=== PATIENT | female | born 1970 | race Native Hawaiian/Other Pacific Islander ===

== ENCOUNTER 2016-07-29 13:20 | Emergency (ER) | payer MEDICAID ==
[2016-07-29] MEDS ORDERED: MORPHINE IM ONE (17:43)
[2016-07-29] MEDS ORDERED: ZOFRAN IM ONE (17:43)
[2016-07-29] MEDS ORDERED: DECADRON IM ONE (17:43)
--- NOTE | 2016-07-29 17:47 | Emergency Department Report ---
ED General Adult HPI - General Chief complaint: Pain General Stated complaint: PAIN AND BAD RASH Time Seen by Provider: 07/29/16 16:37 Source: patient Mode of arrival: Ambulatory Limitations: No Limitations - History of Present Illness Initial comments: 46 year old female with hx of lupus presents with joint pains and rash. states that rash is itchy and painful. denies taking medication for rash. denies other symptoms. - Related Data Home Medications Medication Instructions Recorded Confirmed Last Taken Advair Diskus 500-50 mcg 500 mcg INHALATION QDAY 02/05/16 02/05/16 Unknown Atenolol [Atenolol] 25 mg PO QDAY 02/05/16 02/05/16 02/05/16 0900 Baclofen [Baclofen] 10 mg PO TID 02/05/16 02/05/16 Unknown Baclofen [Baclofen] 50 mg PO TID 02/05/16 02/05/16 Unknown Combivent Inhaler 4 g INHALATION TID 02/05/16 02/05/16 Unknown Ipratropium 1.25 ml INHALATION TID 02/05/16 02/05/16 Unknown Levothyroxine 0.137 mg PO QDAY 02/05/16 02/05/16 02/05/16 0900 Levothyroxine Sodium 137 mcg PO QAM 02/05/16 02/05/16 02/05/16 [Levothyroxine] 0900 Neurontin 1,600 mg PO TID 02/05/16 02/05/16 02/05/16 0900 Plaquenil 400 mg PO QDAY 02/05/16 02/05/16 01/20/16 09:00 Previous Rx's Medication Instructions Recorded Last Taken Type Diazepam Tab [Valium] 5 mg PO TID PRN #14 tablet 02/05/16 Unknown Rx Tobramycin 0.3% [Tobrex] 1 drop OU Q6H #1 bottle 02/05/16 Unknown Rx HYDROcodone/APAP 10-325 [[place] 1 each PO Q8HR PRN #10 tablet 07/29/16 Unknown Rx 10/325] Nystatin/Triamcin [Mycolog Cream] 1 applicatio TP BID #1 tube 07/29/16 Unknown Rx Allergies Allergy/AdvReac Type Severity Reaction Status Date / Time codeine Allergy Unknown Verified 01/13/16 10:17 meperidine HCl [From Demerol] Allergy Anaphylaxis Verified 02/05/16 16:15 pregabalin [From Lyrica] Allergy Unknown Verified 01/13/16 10:17 quetiapine fumarate Allergy Unknown Verified 01/13/16 10:17 [From Seroquel] tramadol HCl [From Ultram] Allergy Unknown Verified 01/13/16 10:17 venlafaxine HCl Allergy Anaphylaxis Verified 02/05/16 16:15 [From Effexor] ED Review of Systems ROS: Stated complaint: PAIN AND BAD RASH Other details as noted in HPI Constitutional: denies: chills, fever Eyes: denies: eye pain, eye discharge, vision change ENT: denies: ear pain, throat pain Respiratory: denies: cough, shortness of breath, wheezing Cardiovascular: denies: chest pain, palpitations Endocrine: no symptoms reported Gastrointestinal: denies: abdominal pain, nausea, diarrhea Genitourinary: denies: urgency, dysuria, discharge Musculoskeletal: arthralgia. denies: back pain, joint swelling Skin: rash. denies: lesions Neurological: denies: headache, weakness, paresthesias Psychiatric: denies: anxiety, depression Hematological/Lymphatic: denies: easy bleeding, easy bruising ED Past Medical Hx - Past Medical History Hx Hypertension: Yes Hx Arthritis: Yes ("four types") Additional medical history: LUPUS, hyperthyroid, "nerve damage" - Surgical History Hx Appendectomy: Yes Additional Surgical History: hyperthyroid, hernia repair - Social History Smoking Status: Current Every Day Smoker Substance Use Type: None - Medications Home Medications: Home Medications Medication Instructions Recorded Confirmed Last Taken Type Advair Diskus 500-50 mcg 500 mcg INHALATION QDAY 02/05/16 02/05/16 Unknown History Atenolol [Atenolol] 25 mg PO QDAY 02/05/16 02/05/16 02/05/16 History 0900 Baclofen [Baclofen] 10 mg PO TID 02/05/16 02/05/16 Unknown History Baclofen [Baclofen] 50 mg PO TID 02/05/16 02/05/16 Unknown History Combivent Inhaler 4 g INHALATION TID 02/05/16 02/05/16 Unknown History Diazepam Tab [Valium] 5 mg PO TID PRN #14 tablet 02/05/16 Unknown Rx Ipratropium 1.25 ml INHALATION TID 02/05/16 02/05/16 Unknown History Levothyroxine 0.137 mg PO QDAY 02/05/16 02/05/16 02/05/16 History 899 Levothyroxine Sodium 137 mcg PO QAM 02/05/16 02/05/16 02/05/16 History [Levothyroxine] 899 Neurontin 1,600 mg PO TID 02/05/16 02/05/16 02/05/16 History 899 Plaquenil 400 mg PO QDAY 02/05/16 02/05/16 01/20/16 09:00 History Tobramycin 0.3% [Tobrex] 1 drop OU Q6H #1 bottle 02/05/16 Unknown Rx HYDROcodone/APAP 10-325 [[place] 1 each PO Q8HR PRN #10 tablet 07/29/16 Unknown Rx 10/325] Nystatin/Triamcin [Mycolog Cream] 1 applicatio TP BID #1 tube 07/29/16 Unknown Rx ED Physical Exam - General Limitations: No Limitations General appearance: alert, in no apparent distress - Head Head exam: Present: atraumatic, normocephalic - Eye Eye exam: Present: normal appearance - ENT ENT exam: Present: mucous membranes moist - Neck Neck exam: Present: normal inspection - Respiratory Respiratory exam: Present: normal lung sounds bilaterally. Absent: respiratory distress - Cardiovascular Cardiovascular Exam: Present: regular rate, normal rhythm. Absent: systolic murmur, diastolic murmur, rubs, gallop - GI/Abdominal GI/Abdominal exam: Present: soft, normal bowel sounds - Extremities Exam Extremities exam: Present: normal inspection - Back Exam Back exam: Present: normal inspection - Neurological Exam Neurological exam: Present: alert, oriented X3 - Psychiatric Psychiatric exam: Present: normal affect, normal mood - Skin Skin exam: Present: warm, dry, intact, normal color, other (intertigo around bilateral axillary areas and under the breast region.). Absent: rash ED Course Vital Signs 07/29/16 13:53 Temperature 98.4 F Pulse Rate 96 H Respiratory 18 Rate Blood Pressure 137/92 O2 Sat by Pulse 100 Oximetry ED Medical Decision Making - Medical Decision Making patient in NAD at this time. VSS for DC. Critical care attestation.: If time is entered above; I have spent that time in minutes in the direct care of this critically ill patient, excluding procedure time. ED Disposition Clinical Impression: Intertrigo, Joint pain Disposition: DISCHARGED TO HOME OR SELFCARE Is pt being admited?: No Does the pt Need Aspirin: No Condition: Good Instructions: Acute Rash (ED) Prescriptions: HYDROcodone/APAP 10-325 [[place] 10/325] 1 each PO Q8HR PRN #10 tablet PRN Reason: Pain Nystatin/Triamcin [Mycolog Cream] 1 applicatio TP BID #1 tube Referrals: PRIMARY CARE, [Primary Care Provider] - 3-5 Days [facility] [Provider Group] - 3-5 Days Forms: Work/School Release Form(ED) Time of Disposition: 17:51
[2016-07-29 18:00] VITALS: BP 149/83
== END 2016-07-29 20:32 | disposition home or self-care (01) ==
LOC: ED 13:20
DX: L30.4 Erythema intertrigo (principal); M25.50 Pain in unspecified joint; M32.9 Systemic lupus erythematosus, unspecified; I10 Essential (primary) hypertension; M19.90 Unspecified osteoarthritis, unspecified site; E05.90 Thyrotoxicosis, unspecified without thyrotoxic crisis or storm; F17.200 Nicotine dependence, unspecified, uncomplicated; Z98.890 Other specified postprocedural states; Z79.899 Other long term (current) drug therapy; Z88.6 Allergy status to analgesic agent; Z88.8 Allergy status to other drugs, medicaments and biological substances
CPT/HCPCS: 96372; 99282; J1100; J2270; J2405

== ENCOUNTER 2018-06-15 18:02 | Inpatient (IN) | payer MEDICAID ==
[2018-06-15 19:30] LABS: Basophils # (Auto) 0.1 K/mm3 (0.0-0.1); Basophils % (Auto) 0.8 % (0.0-1.8); Eosinophils % (Auto) 0.4 % (0.0-4.3); Hematocrit 37.7 % (30.3-42.9); Hemoglobin 12.7 gm/dl (10.1-14.3); Lymphocytes # (Auto) 3.1 K/mm3 (1.2-5.4); Lymphocytes % (Auto) 40.4 % (13.4-35.0); Mean Corpuscular HGB Conc 34 % (30-34); Mean Corpuscular Volume 98 fl (79-97); Monocytes % (Auto) 13.2 % (0.0-7.3); Platelet Count 345 K/mm3 (140-440); Red Blood Count 3.83 M/mm3 (3.65-5.03); Red Cell Distribution Width 16.2 % (13.2-15.2)
[2018-06-15 19:49] LABS: BUN/Creatinine Ratio 13; Blood Urea Nitrogen 9 mg/dL (7-17); Calcium 9.5 mg/dL (8.4-10.2); Hemolysis Index 13
[2018-06-15] MEDS ORDERED: TORADOL IV ONE (20:10)
[2018-06-15] MEDS ORDERED: ZOFRAN IV ONE (20:20)
[2018-06-15] MEDS ORDERED: ZANAFLEX PO ONE (20:20)
[2018-06-15] MEDS ORDERED: MORPHINE IV ONE (20:20)
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
--- NOTE | 2018-06-15 22:25 | Cat Scan Report ---
FINAL REPORT EXAM: CT ANGIO CHEST HISTORY: cp, hx of recent diag lung ca TECHNIQUE: Enhanced CT of the chest at 2.5 mm axial intervals following a pulmonary embolism protoco l. Coronal and sagittal imaging were also obtained. Coronal oblique MIP projections were obtained. Contrast: 100 ml of Omnipaque 350 given IV. PRIORS: None. FINDINGS: There is no evidence for pulmonary embolism in the main pulmonary artery, right and left pulmonary ar teries or their major distributions. However, CT does not exclude distal pulmonary emboli. There is a multilobulated soft tissue mass in the left suprahilar region measuring at least 4.8 x 6.0 cm (axial image 35, series 2). Findings are consistent with neoplasm. There is also left hilar adeno maliha. There are multiple nonspecific uncalcified nodules identified in the upper lobes, right middle lobe, and left lower lobe. No definite nodules in the right lower lobe are noted. These measure up t o 1.2 cm in the central right upper lobe (axial image 37, series 2) and a perivascular location. There is no evidence for right hilar or bilateral axillary adenopathy. Cardiovascular structures are within normal limits. No evidence for ventricular chamber enlargement is seen. Images through the lung bases include the upper abdomen which show rounded hypodensities in both lobe s of the liver. The largest is in the posterior right lobe measuring 5.5 cm. The entire liver is not visualized. Findings are bothersome for metastatic disease. There also nodules present in each adrena l gland which are nonspecific. Metastatic disease is not excluded as well as other benign etiologies. Bony structures demonstrate no focal abnormalities. IMPRESSION: 1. no evidence for pulmonary embolism. 2. Left suprahilar multilobulated soft tissue mass consistent with neoplasm. This is associated with left hilar adenopathy, bilateral pulmonary metastatic lesions, and hepatic Tc sees. Bilateral adrenal nodules may also be metastatic.
--- NOTE | 2018-06-15 22:28 | XRay Report ---
FINAL REPORT EXAM: XR CHEST ROUTINE 2V HISTORY: Chest Pain TECHNIQUE: PA and lateral views of the chest PRIORS: CT chest 06/15/2018. FINDINGS: Lines, tubes, and devices: N/A Lungs and pleura: Trachea is normal in position. Lungs are clear of infiltrate, pleural effusion, va scular congestion, or pneumothorax. Pulmonary nodule seen on CT are difficult to visualize on CXR. Cardiomediastinal silhouette: There is abnormal left hilar margin consistent with a left hilar mass. This is noted on CT. Other: Bony structures are intact. IMPRESSION: Left suprahilar mass.
[2018-06-15] MEDS ORDERED: NITROSTAT SL PRN (23:37)
[2018-06-15] MEDS ORDERED: TYLENOL PO PRN (23:37)
[2018-06-16] MEDS: NITRO-BID 2% TP SCH ×5 (01:12→18:40)
[2018-06-16 01:13] LABS: Creatine Kinase MB 2.8 ng/mL (0.0-4.0)
[2018-06-16] MEDS: MORPHINE IV PRN ×6 (01:13→22:13)
[2018-06-16] MEDS ORDERED: RESTORIL PO ONE ×2 (01:15→22:36)
[2018-06-16] MEDS: ZOFRAN IV PRN ×2 (01:27→16:01)
[2018-06-16] MEDS: SYNTHROID PO SCH ×2 (05:05)
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
[2018-06-16] MEDS ORDERED: IPRATROPIUM INHALATION SCH ×2 (08:00)
[2018-06-16] MEDS ORDERED: ALBUTEROL INHALATION SCH (08:00)
[2018-06-16 08:23] LABS: Creatine Kinase MB 4.2 ng/mL (0.0-4.0)
--- NOTE | 2018-06-16 08:23 | Event Note ---
Date: 06/16/18 [id number]
--- NOTE | 2018-06-16 09:31 | Consultation ---
Addendum entered and electronically signed by HARVINDER MONTES MD 06/16/18 12:08: Atypical chest pain Normal LVEF and stress test 08/2017 CT chest is showing retrohilar mass Stage IV liver and lung cancer Poor prognosis Patient was told that she only has 6 months to live Homelessness Chronic shortness of breath No further cardiac work-up is needed for atypical chest given recent normal cardiac work-up Pain control and palliative care should be considered Original Note: History of Present Illness Consult date: 06/16/18 Consult reason: chest pain History of present illness: This is a 47 year old homeless woman who gives a history of stage IV liver and lung cancer. She presented to this hospital with complaints of chest pain associated with shortness of breath, nausea and vomiting. Cycled cardiac enzymes were normal. Her ECG is benign. Cardiac consultation was requested for chest pain. Patient was initially planned to have a stress thallium test, ordered by the primary team, but we have canceled this. Patient is known to [facility] and has previously undergone cardiac evaluation. She had a normal persantine thallium stress test and a normal left ventricular ejection fraction on an echocardiogram August of 2017. Medications and Allergies Allergies Allergy/AdvReac Type Severity Reaction Status Date / Time codeine Allergy Unknown Verified 01/13/16 10:17 meperidine HCl [From Demerol] Allergy Anaphylaxis Verified 02/05/16 16:15 pregabalin [From Lyrica] Allergy Unknown Verified 01/13/16 10:17 quetiapine fumarate Allergy Unknown Verified 01/13/16 10:17 [From Seroquel] tramadol HCl [From Ultram] Allergy Unknown Verified 01/13/16 10:17 venlafaxine HCl Allergy Anaphylaxis Verified 02/05/16 16:15 [From Effexor] Home Medications Medication Instructions Recorded Confirmed Last Taken Type Advair Diskus 500-50 mcg 500 mcg INHALATION QDAY 02/05/16 02/05/16 Unknown History Atenolol 25 mg PO QDAY 02/05/16 02/05/16 02/05/16 History 0900 Baclofen 10 mg PO TID 02/05/16 02/05/16 Unknown History Baclofen 50 mg PO TID 02/05/16 02/05/16 Unknown History Combivent Inhaler 4 g INHALATION TID 02/05/16 02/05/16 Unknown History Ipratropium 1.25 ml INHALATION TID 02/05/16 02/05/16 Unknown History Levothyroxine 0.137 mg PO QDAY 02/05/16 02/05/16 02/05/16 History 899 Levothyroxine Sodium 137 mcg PO QAM 02/05/16 02/05/16 02/05/16 History [Levothyroxine] 899 Neurontin 1,600 mg PO TID 02/05/16 02/05/16 02/05/16 History 899 Plaquenil 400 mg PO QDAY 02/05/16 02/05/16 01/20/16 09:00 History Tobramycin 0.3% [Tobrex] 1 drop OU Q6H #1 bottle 02/05/16 Unknown Rx diazePAM TAB [Valium] 5 mg PO TID PRN #14 tablet 02/05/16 Unknown Rx HYDROcodone/APAP 10-325 [[place] 1 each PO Q8HR PRN #10 tablet 07/29/16 Unknown Rx 10/325] Nystatin/Triamcin (Nf) [Mycolog 1 applicatio TP BID #1 tube 07/29/16 Unknown Rx Cream] Active Meds: Active Medications Acetaminophen (Tylenol) 650 mg PO Q6H PRN PRN Reason: Pain, Mild (1-3) Albuterol/Ipratropium (Duoneb *Not For Prn Use*) 1 ampul IH TIDRT [facility] Arformoterol Tartrate (Brovana Nebu) 15 mcg IH Q12HRT [facility] Aspirin (Aspirin) 325 mg PO QDAY [facility] Atenolol (Tenormin) 25 mg PO QDAY [facility] Budesonide (Pulmicort) 1 mg IH Q12HRT [facility] Cyclobenzaprine HCl (Flexeril) 10 mg PO Q8H PRN PRN Reason: Muscle Spasm Diazepam (Valium) 5 mg PO TID PRN PRN Reason: Muscle Spasm Gabapentin (Neurontin) 1,600 mg PO TID [facility] Hydroxychloroquine Sulfate (Plaquenil) 400 mg PO QDAY [facility] Levothyroxine Sodium (Synthroid) 25 mcg PO DAILY@0600 [facility] Last Admin: 06/16/18 05:05 Dose: 25 mcg Documented by: Levothyroxine Sodium (Synthroid) 112 mcg PO QDAY@0600 [facility] Last Admin: 06/16/18 05:05 Dose: 112 mcg Documented by: Miscellaneous Medication (Nystatin/Triamcin (Nf)) 1 applicatio TP BID [facility] Morphine Sulfate (Morphine) 2 mg IV Q3H PRN PRN Reason: Pain, Moderate (4-6) Last Admin: 06/16/18 05:04 Dose: 2 mg Documented by: Nitroglycerin (Nitrostat) 0.4 mg SL .Q5MIN PRN PRN Reason: Chest Pain Nitroglycerin (Nitro-Bid 2%) 0.5 inch TP QIDNTG [facility]; Protocol Last Admin: 06/16/18 05:06 Dose: Not Given Documented by: Ondansetron HCl (Zofran) 4 mg IV Q8H PRN PRN Reason: Nausea And Vomiting Last Admin: 06/16/18 01:27 Dose: 4 mg Documented by: Pneumococcal Polyvalent Vaccine (Pneumovax 23) 0.5 ml IM .ONCE ONE Stop: 06/16/18 12:01 Tobramycin Sulfate (Tobrex) 1 drops OU Q6H [facility] Physical Examination Vital Signs Pulse Resp 113 H 12 06/15/18 18:10 06/15/18 18:10 General appearance: no acute distress HEENT: Positive: PERRL Neck: Positive: trachea midline Cardiac: Positive: Reg Rate and Rhythm Lungs: Positive: Decreased Breath Sounds Neuro: Positive: Grossly Intact Extremities: Absent: edema Results 06/15/18 19:14 06/15/18 19:14 Cardiac Enzymes 06/16/18 06/16/18 Range/Units 00:23 07:01 CK-MB (CK-2) 2.8 4.2 H (0.0-4.0) ng/mL CBC 06/15/18 Range/Units 19:14 WBC 7.6 (4.5-11.0) K/mm3 RBC 3.83 (3.65-5.03) M/mm3 Hgb 12.7 (10.1-14.3) gm/dl Hct 37.7 (30.3-42.9) % Plt Count 345 (140-440) K/mm3 Lymph # 3.1 (1.2-5.4) K/mm3 [place] # 1.0 H (0.0-0.8) K/mm3 Eos # 0.0 (0.0-0.4) K/mm3 Baso # 0.1 (0.0-0.1) K/mm3 Comprehensive Metabolic Panel 06/15/18 Range/Units 19:14 Sodium 139 (137-145) mmol/L Potassium 3.6 (3.6-5.0) mmol/L Chloride 97.2 L (98-107) mmol/L Carbon Dioxide 27 (22-30) mmol/L BUN 9 (7-17) mg/dL Creatinine 0.7 (0.7-1.2) mg/dL Glucose 85 (65-100) mg/dL Calcium 9.5 (8.4-10.2) mg/dL Assessment and Plan - Patient Problems (1) Chest pain Current Visit: Yes Status: Acute
[2018-06-16] MEDS: ASPIRIN PO SCH (09:52)
[2018-06-16] MEDS: VALIUM PO PRN ×2 (09:52→18:40)
[2018-06-16] MEDS: NEURONTIN PO SCH ×3 (09:52→22:13)
[2018-06-16] MEDS: PLAQUENIL PO SCH ×2 (09:53→10:11)
[2018-06-16] MEDS: TENORMIN PO SCH (09:53)
[2018-06-16] MEDS ORDERED: SYNTHROID PO SCH (10:00)
[2018-06-16] MEDS ORDERED: TRIAMCINOLONE TP SCH (10:00)
[2018-06-16] MEDS ORDERED: NYSTATIN TP SCH (10:00)
[2018-06-16] MEDS ORDERED: ADVAIR INHALATION SCH (10:00)
--- NOTE | 2018-06-16 10:48 | Event Note ---
Date: 06/16/18 Patient with lung cancer presents with chest pain. cardology and Oncology consulted. She is homeless and case management has been consulted to assist. Also received a call from a PCP, Dr. Momo Bains. He states that she had an appointment today 06/16/18 and she was scheduled to meet with health service worker to assist since she is homeless.
[2018-06-16] MEDS ORDERED: AFLURIA QUAD 2018-2019 SYRINGE IM ONE (12:00)
[2018-06-16] MEDS ORDERED: PNEUMOVAX 23 IM ONE (12:00)
[2018-06-16] MEDS: TOBREX OU SCH ×3 (12:00→20:15)
[2018-06-16] MEDS: DUONEB *Not for PRN Use IH SCH ×3 (12:37→20:26)
[2018-06-16] MEDS: PULMICORT IH SCH ×2 (12:38→20:26)
[2018-06-16] MEDS: BROVANA NEBU IH SCH ×2 (12:38→20:26)
[2018-06-16] MEDS: FLEXERIL PO PRN ×2 (13:32→22:13)
[2018-06-16] MEDS ORDERED: AMBIEN PO PRN (21:23)
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
[2018-06-17] MEDS: NITRO-BID 2% TP SCH ×4 (05:44→18:07)
[2018-06-17] MEDS: TOBREX OU SCH ×3 (05:44→12:21)
[2018-06-17] MEDS: SYNTHROID PO SCH ×2 (05:44)
[2018-06-17] MEDS: PULMICORT IH SCH ×2 (07:39→21:28)
[2018-06-17] MEDS: BROVANA NEBU IH SCH ×2 (07:40→21:28)
[2018-06-17] MEDS: DUONEB *Not for PRN Use IH SCH ×2 (07:46→13:35)
[2018-06-17] MEDS: MORPHINE IV PRN ×4 (08:07→22:51)
--- NOTE | 2018-06-17 08:13 | Hem/Onc Progress Note ---
Assessment and Plan 1. History of stage IV lung cancer with liver mets. 2. Status post one session of chemotherapy, two chemotherapy agents were used in April 2018. After that, she has not been able to go back. 3. Homeless. 4. Financial issues. 5. History of active smoking. 6. History of thyroid disorder. 7. History of systemic lupus erythematosus? 8. History of hypertension. 9. Slightly elevated MCV. 10. Elevated D-dimer. PLAN: I will follow the patient during inpatient stay. The patient being homeless makes it challenging. She can come to the clinic and we will look into investigating into the markers to decide if oral medications can be used and see if free supply of the same medications can be given. However, she needs to make an appointment in the clinic to go over this procedure. pt looking into hospice headache - will look into CT head - Patient Problems (1) Metastatic lung cancer (metastasis from lung to other site) Status: Acute Subjective Date of service: 06/17/18 Principal diagnosis: stage 4 lung ca Interval history: vomiting Objective - Constitutional Vitals: Last Vital Signs Temp 98.6 F 06/17/18 07:56 Pulse 92 H 06/17/18 07:56 Resp 20 06/17/18 08:07 BP 106/73 06/17/18 07:56 Pulse Ox 93 06/17/18 07:56 Pain Intensity (0-10): 1/10 (headache) General appearance: no acute distress Performance status: 2- selfcare, ambulatory - EENT Eyes: EOM intact ENT: clear oral mucosa Lymph node exam: negative cervical, negative supraclavicular - Neck Neck: normal ROM - Respiratory Respiratory effort: Positive: normal Respiratory: bilateral: CTA - Cardiovascular Heart Sounds: Present: S1 & S2 Extremities: No edema - Gastrointestinal General gastrointestinal: Present: soft, non-tender Rectal Exam: deferred - Genitourinary Female genitourinary: Present: deferred - Integumentary Integumentary: warm - Musculoskeletal Musculoskeletal: strength equal bilaterally - Neurologic Neurologic: moves all extremities - Labs Lab Results: Laboratory Results - last 24 hr 06/16/18 07:01 Total Creatine Kinase 524 H CK-MB (CK-2) 4.2 H CK-MB (CK-2) Rel Index 0.8 Troponin T < 0.010 Medications & Allergies - Medications Allergies/Adverse Reactions: Allergies codeine Allergy (Verified 01/13/16 10:17) Unknown meperidine HCl [From Demerol] Allergy (Verified 02/05/16 16:15) Anaphylaxis peanut Allergy (Verified 06/16/18 15:21) Shortness of Breath pregabalin [From Lyrica] Allergy (Verified 01/13/16 10:17) Unknown quetiapine fumarate [From Seroquel] Allergy (Verified 01/13/16 10:17) Unknown tramadol HCl [From Ultram] Allergy (Verified 01/13/16 10:17) Unknown venlafaxine HCl [From Effexor] Allergy (Verified 02/05/16 16:15) Anaphylaxis Barley Allergy (Uncoded 06/16/18 15:20) Shortness of Breath Bronte Allergy (Uncoded 06/16/18 15:20) Shortness of Breath Home Medications: Home Medications Medication Instructions Recorded Confirmed Last Taken Type Advair Diskus 500-50 mcg 500 mcg INHALATION QDAY 02/05/16 02/05/16 Unknown H istory Combivent Inhaler 4 g INHALATION TID 02/05/16 02/05/16 Unknown History Ipratropium 1.25 ml INHALATION TID 02/05/16 02/05/16 Unknown History Levothyroxine 0.137 mg PO QDAY 02/05/16 02/05/16 02/05/16 History 899 Neurontin 1,600 mg PO TID 02/05/16 02/05/16 02/05/16 History 899 Plaquenil 400 mg PO QDAY 02/05/16 02/05/16 01/20/16 09:00 History RX: Atenolol 25 mg PO QDAY 02/05/16 02/05/16 02/05/16 History 899 RX: Baclofen 10 mg PO TID 02/05/16 02/05/16 Unknown History RX: Levothyroxine Sodium 137 mcg PO QAM 02/05/16 02/05/16 02/05/16 History [Levothyroxine] 899 RX: Tobramycin 0.3% [Tobrex] 1 drop OU Q6H #1 bottle 02/05/16 Unknown Rx RX: diazePAM TAB [Valium] 5 mg PO TID PRN #14 tablet 02/05/16 Unknown Rx RX: HYDROcodone/APAP 10-325 [[place] 1 each PO Q8HR PRN #10 tablet 07/29/16 Unknown Rx 10-325 mg TAB] RX: Nystatin/Triamcin (Nf) 1 applicatio TP BID #1 tube 07/29/16 Unknown Rx [Mycolog Cream] Active Medications: Generic Name Dose Route Start Last Admin Trade Name Freq PRN Reason Stop Dose Admin Acetaminophen 650 mg 06/15/18 23:37 Tylenol PO Q6H PRN Pain, Mild (1-3) Albuterol/Ipratropium 1 ampul 06/16/18 08:00 06/17/18 07:46 Duoneb *Not For Prn Use* IH Not Given TIDRT [facility] Arformoterol Tartrate 15 mcg 06/16/18 08:00 06/17/18 07:40 Brovana Nebu IH 15 mcg Q12HRT KARI Administration Aspirin 325 mg 06/16/18 10:00 06/16/18 09:52 Aspirin PO 325 mg QDAY [facility]ARI Administration Atenolol 25 mg 06/16/18 10:00 06/16/18 09:53 Tenormin PO 25 mg QDAY [facility] Administration Budesonide 1 mg 06/16/18 08:00 06/17/18 07:39 Pulmicort IH 1 mg Q12HRT KARI Administration Cyclobenzaprine HCl 10 mg 06/15/18 23:38 06/16/18 22:13 Flexeril PO 10 mg Q8H PRN Administration Muscle Spasm Diazepam 5 mg 06/15/18 23:41 06/16/18 18:40 Valium PO 5 mg TID PRN Administration Muscle Spasm Gabapentin 1,600 mg 06/16/18 08:00 06/16/18 22:13 Neurontin PO 1,600 mg TID KARI Administration Hydroxychloroquine Sulfate 400 mg 06/16/18 10:00 06/16/18 10:11 Plaquenil PO Not Given QDAY [facility] Levothyroxine Sodium 25 mcg 06/16/18 06:00 06/17/18 05:44 Synthroid PO 25 mcg DAILY@0600 [facility] Administration Levothyroxine Sodium 112 mcg 06/16/18 06:00 06/17/18 05:44 Synthroid PO 112 mcg QDAY@0600 [facility] Administration Miscellaneous Medication 1 applicatio 06/16/18 10:00 Nystatin/Triamcin (Nf) TP BID [facility] Morphine Sulfate 2 mg 06/15/18 23:35 06/17/18 08:07 Morphine IV 2 mg Q3H PRN Administration Pain, Moderate (4-6) Nitroglycerin 0.4 mg 06/15/18 23:37 Nitrostat SL .Q5MIN PRN Chest Pain Nitroglycerin 0.5 inch 06/16/18 00:00 06/17/18 05:44 Nitro-Bid 2% TP Not Given QIDNTG [facility] Protocol Ondansetron HCl 4 mg 06/15/18 23:36 06/16/18 16:01 Zofran IV 4 mg Q8H PRN Administration Nausea And Vomiting Tobramycin Sulfate 1 drops 06/16/18 06:00 06/17/18 06:29 Tobrex OU Not Given Q6H [facility]
[2018-06-17] MEDS: NEURONTIN PO SCH ×3 (08:15→22:50)
--- NOTE | 2018-06-17 09:41 | Progress Note ---
Assessment and Plan Assessment and plan: Metastatic lung cancer with mets to liver Patient has missed chemo because of homeless, l;ack of transportation. I discussed with her PCP, Dr. Momo Bains chest pain Due to lung cancer Metastatic liver lesions Lupus hypertension. continue Atenolol Homelessness. case management consulted, Full code status History Interval history: Chest pain Homeless Hospitalist Physical - Physical exam Narrative exam: GEN: Not in acute distress,lying in bed HEENT: Normocephalic, atraumatic, Neck: supple, No JVD Lungs: Clear to auscultation, no wheeze Heart:S1 and S2 regular, no murmurs, rubs or gallop, Abd:soft, non tender, non distended, normal bowel sounds Ext: No edema, no clubbing or cyanosis Neuro: Awake,alert, oriented x 3, No focal signs - Constitutional Vitals: Temp Pulse Resp BP Pulse Ox 98.6 F 92 H 20 106/73 93 06/17/18 07:56 06/17/18 07:56 06/17/18 08:07 06/17/18 07:56 06/17/18 07:56 General appearance: Present: no acute distress Results - Labs CBC & Chem 7: 06/15/18 19:14 06/15/18 19:14 Labs: Laboratory Last Values WBC 7.6 K/mm3 (4.5-11.0) 06/15/18 19:14 RBC 3.83 M/mm3 (3.65-5.03) 06/15/18 19:14 Hgb 12.7 gm/dl (10.1-14.3) 06/15/18 19:14 Hct 37.7 % (30.3-42.9) 06/15/18 19:14 MCV 98 fl (79-97) H 06/15/18 19:14 MCH 33 pg (28-32) H 06/15/18 19:14 MCHC 34 % (30-34) 06/15/18 19:14 RDW 16.2 % (13.2-15.2) H 06/15/18 19:14 Plt Count 345 K/mm3 (140-440) 06/15/18 19:14 Lymph % (Auto) 40.4 % (13.4-35.0) H 06/15/18 19:14 [place] % (Auto) 13.2 % (0.0-7.3) H 06/15/18 19:14 Eos % (Auto) 0.4 % (0.0-4.3) 06/15/18 19:14 Baso % (Auto) 0.8 % (0.0-1.8) 06/15/18 19:14 Lymph # 3.1 K/mm3 (1.2-5.4) 06/15/18 19:14 [place] # 1.0 K/mm3 (0.0-0.8) H 06/15/18 19:14 Eos # 0.0 K/mm3 (0.0-0.4) 06/15/18 19:14 Baso # 0.1 K/mm3 (0.0-0.1) 06/15/18 19:14 Seg Neutrophils % 45.2 % (40.0-70.0) 06/15/18 19:14 Seg Neutrophils # 3.4 K/mm3 (1.8-7.7) 06/15/18 19:14 D-Dimer 375.67 ng/mlDDU (0-234) H 06/15/18 19:14 Sodium 139 mmol/L (137-145) 06/15/18 19:14 Potassium 3.6 mmol/L (3.6-5.0) 06/15/18 19:14 Chloride 97.2 mmol/L (98-107) L 06/15/18 19:14 Carbon Dioxide 27 mmol/L (22-30) 06/15/18 19:14 Anion Gap 18 mmol/L 06/15/18 19:14 BUN 9 mg/dL (7-17) 06/15/18 19:14 Creatinine 0.7 mg/dL (0.7-1.2) 06/15/18 19:14 Estimated GFR > 60 ml/min 06/15/18 19:14 BUN/Creatinine Ratio 13 % 06/15/18 19:14 Glucose 85 mg/dL (65-100) 06/15/18 19:14 Calcium 9.5 mg/dL (8.4-10.2) 06/15/18 19:14 Total Creatine Kinase 524 units/L (30-135) H 06/16/18 07:01 CK-MB (CK-2) 4.2 ng/mL (0.0-4.0) H 06/16/18 07:01 CK-MB (CK-2) Rel Index 0.8 (0-4) 06/16/18 07:01 Troponin T < 0.010 ng/mL (0.00-0.029) 06/16/18 07:01 HCG, Qual Negative (Negative) 06/15/18 19:14 Nutrition/Malnutrition Assess - Dietary Evaluation Nutrition/Malnutrition Findings: Nutrition Notes Start: 06/16/18 14:49 Freq: Status: Active Protocol: Document 06/16/18 14:49 RM (Rec: 06/16/18 15:01 RM [id number]) Nutrition Notes Need for Assessment generated from: [facility] Initial or Follow up Assessment Current Diagnosis Hypertension Other Pertinent Diagnosis Hyperthyroidism, Lung cancer Current Diet Cardiac Labs/Tests Reviewed Pertinent Medications Reviewed Height 5 ft 9 in Weight 77.4 kg Usual Body Weight 75.91 kg [place] Body Weight (lbs) 145.0 BMI 25.2 Subjective/Other Information Pt screened for malnutrition. NPO in place earlier today. Cardiac diet ordered later today. Admitted to vomiting for 12 days and diarrhea for 2 weeks. Stated she can keep down fluids. Stated UBW was 165-170 lbs 1 month ago. Burn Absent Trauma Absent #1 Nutrition Diagnosis Predicted suboptimal energy intake Etiology lung cancer As Evidenced by Signs and Symptoms vomiting X 12 days Is patient on ventilator? No Is Patient Ambulatory and/or Out of Bed Yes REE-([facility]-ambulatory/OOB) [ [id number] [id number]] Calculation Used for Recommendations [facility] Additional Notes Protein Needs: 77-116g (1-1.5g /kg) Fluid Needs: 1 ml/kcal Nutrition Intervention Change Diet Order: Continue current Add Supplement/Snack (indicate name/kcal Ensure Enlive chocolate, /protein ) vanilla 1 daily Provides kCal: 350 Provides Protein (gm) 20 Goal #1 PO tolerance Goal #2 Meet at least 75% of calorie and protein needs via PO and ONS intakes Anticipated Discharge Needs: Cardiac diet Follow-Up By: 06/18/18 Additional Comments Follow for PO and ONS intakes
--- NOTE | 2018-06-17 10:45 | Progress Note ---
Addendum entered and electronically signed by HARRY SAVAGE MD 06/17/18 16:53: No active cardiac issues, we will sign off and follow on a when necessary basis. Original Note: Assessment and Plan Atypical chest pain Normal LVEF and stress test 08/2017 Stage IV liver and lung cancer Homelessness Chronic shortness of breath No further cardiac workup indicated. Supportive cardiac management. We will follow intermittently. Subjective Date of service: 06/17/18 Interval history: Patient has no cardiac complaints. Objective Vital Signs Temp Pulse Pulse Pulse Resp Resp Resp 06/17/18 08:07 20 06/17/18 07:56 98.6 F 92 H 18 06/17/18 07:44 06/17/18 07:41 84 18 06/17/18 05:44 77 06/17/18 04:14 98.1 F 77 16 06/16/18 23:46 98.1 F 76 16 06/16/18 22:43 18 06/16/18 22:30 18 06/16/18 22:13 18 06/16/18 22:05 74 20 06/16/18 20:43 91 H 18 06/16/18 20:34 93 H 06/16/18 20:28 06/16/18 20:27 89 17 06/16/18 19:54 98.3 F 12 06/16/18 19:02 18 06/16/18 17:19 98.4 F 74 20 06/16/18 12:58 78 18 06/16/18 12:39 06/16/18 12:35 72 20 06/16/18 12:15 98.3 F 72 20 BP Pulse Ox 06/17/18 08:07 06/17/18 07:56 106/73 93 06/17/18 07:44 95 06/17/18 07:41 06/17/18 05:44 89/52 06/17/18 04:14 89/52 97 06/16/18 23:46 100/61 96 06/16/18 22:43 06/16/18 22:30 06/16/18 22:13 06/16/18 22:05 98 06/16/18 20:43 06/16/18 20:34 06/16/18 20:28 100 06/16/18 20:27 06/16/18 19:54 115/77 06/16/18 19:02 06/16/18 17:19 92/55 98 06/16/18 12:58 06/16/18 12:39 95 06/16/18 12:35 06/16/18 12:15 116/79 97 - Physical Examination General: No Apparent Distress HEENT: Positive: PERRL Neck: Positive: trachea midline Cardiac: Positive: Reg Rate and Rhythm Lungs: Positive: Decreased Breath Sounds Neuro: Positive: Grossly Intact Extremities: Absent: edema
[2018-06-17] MEDS: PLAQUENIL PO SCH (11:55)
[2018-06-17] MEDS: ASPIRIN PO SCH (11:56)
[2018-06-17] MEDS: TENORMIN PO SCH (12:19)
--- NOTE | 2018-06-17 14:12 | Query- Dyspnea ---
Silvana Mercedes____Rico Date:___06/17/2018 Fabián/CDS:___Faye Phone#:___[phone] Exercise your independent professional judgment when responding to query. Questions asked do not imply a particular answer is desired or expected. We greatly appreciate your clarification on this issue. Clinical Documentation States: 47-year-old female with a past medical history of arthritis, hypertension, lupus with chronic pain (treated with narcotics), and recent lung cancer diagnosis in April 2018 presents to the hospital with complaints of continued mid chest pain times several weeks. Clinical Findings Show: Oxygen flow Rate: 3L/min O2 Sat: 93 RR: 25 Please clarify if the patient had any of the following conditions based on the above clinical findings: [x ] Respiratory Failure [x ] Acute [ ] Acute on Chronic [ ] Chronic [ ] Respiratory failure due to trauma [ ] Acute Respiratory Distress Syndrome [ ] Other: [ ] Unable to determine [ ] Comment/Explanation: Present on Admission: [x ] Yes (Y) [ ] Clinically undeterminable (W) [ ] No (N) Please also document response in your Progress Notes and/or Discharge Summary and indicate if the condition was present on admission. [facility]MA[facility]
[2018-06-17] MEDS: REGLAN IV SCH ×2 (18:06→22:50)
--- NOTE | 2018-06-18 | Cat Scan Report ---
FINAL REPORT PROCEDURE: CT HEAD/BRAIN WO/W CON TECHNIQUE: Computerized tomography of the head was performed without contrast material. HISTORY: mets h/a lung cancer COMPARISON: No prior studies are available for comparison. FINDINGS: Skull and scalp: Normal. Paranasal sinuses: Normal. Ventricles and subarachnoid spaces: Normal. Cerebrum: No evidence of hemorrhage, acute infarction or mass . Cerebellum and brainstem: No evidence of hemorrhage, acute infarction or mass. Vasculature: Normal. Comments: None. IMPRESSION: Normal Examination
[2018-06-18] MEDS: TOBREX OU SCH ×4 (06:27→12:37)
[2018-06-18] MEDS: NITRO-BID 2% TP SCH ×3 (06:27→14:52)
[2018-06-18] MEDS: SYNTHROID PO SCH ×2 (06:34)
[2018-06-18] MEDS: FLEXERIL PO PRN (06:43)
[2018-06-18] MEDS: MORPHINE IV PRN ×3 (06:43→15:14)
[2018-06-18] MEDS: PULMICORT IH SCH (07:37)
[2018-06-18] MEDS: BROVANA NEBU IH SCH (07:38)
[2018-06-18] MEDS: DUONEB *Not for PRN Use IH SCH ×3 (07:38→14:16)
[2018-06-18] MEDS: REGLAN IV SCH ×2 (08:39→14:52)
[2018-06-18] MEDS: NEURONTIN PO SCH ×2 (08:39→14:52)
[2018-06-18] MEDS: PLAQUENIL PO SCH (10:49)
[2018-06-18] MEDS: ASPIRIN PO SCH (10:49)
[2018-06-18] MEDS: TENORMIN PO SCH (10:51)
--- NOTE | 2018-06-18 13:17 | Consultation ---
History of Present Illness - Reason for Consult Consult date: 06/18/18 Reason for consult: Mental Health Evaluation Requesting physician: BETTINA YATES - Chief Complaint Chief complaint: "i was upset, never suicidal" - History of Present Psychiatric Illness 47 y.o.47 y.o. white female who presented to the ER for chest pain. Psychiatry was consulted to see the patient because she gestured SI's. Today the patient is calm and cooperative during the assessment. She stated that she made a gestures about shooting her self because she felt like she wasn't given all her options reference hospice treatment. She stated that the conversation with the hospice rep didn't go well. She apologized for making the statement. She stated, "I want to live as long as I can." She denies ever trying to kill herself or thinking about suicide the past. She stated that she does worry about her future because she was recently dx with lung cancer. She stated that she will be okay because she's a "fighter." She denies SI/HI's and AVH's. She denies erratic sleep and a poor appetite. She denies recreational drug use and alcohol consumption (etoh). The patient would a referral to outpatient psy services for therapy. Medications and Allergies Allergies Allergy/AdvReac Type Severity Reaction Status Date / Time codeine Allergy Unknown Verified 01/13/16 10:17 meperidine HCl [From Demerol] Allergy Anaphylaxis Verified 02/05/16 16:15 peanut Allergy Shortness Verified 06/16/18 15:21 of Breath pregabalin [From Lyrica] Allergy Unknown Verified 01/13/16 10:17 quetiapine fumarate Allergy Unknown Verified 01/13/16 10:17 [From Seroquel] tramadol HCl [From Ultram] Allergy Unknown Verified 01/13/16 10:17 venlafaxine HCl Allergy Anaphylaxis Verified 02/05/16 16:15 [From Effexor] Barley Allergy Shortness Uncoded 06/16/18 15:20 of Breath [place] Allergy Shortness Uncoded 06/16/18 15:20 of Breath Home Medications Medication Instructions Recorded Confirmed Last Taken Type Advair Diskus 500-50 mcg 500 mcg INHALATION QDAY 02/05/16 02/05/16 Unknown History Atenolol 25 mg PO QDAY 02/05/16 02/05/16 02/05/16 History 899 Baclofen 10 mg PO TID 02/05/16 02/05/16 Unknown History Combivent Inhaler 4 g INHALATION TID 02/05/16 02/05/16 Unknown History Ipratropium 1.25 ml INHALATION TID 02/05/16 02/05/16 Unknown History Levothyroxine 0.137 mg PO QDAY 02/05/16 02/05/16 02/05/16 History 899 Levothyroxine Sodium 137 mcg PO QAM 02/05/16 02/05/16 02/05/16 History [Levothyroxine] 899 Neurontin 1,600 mg PO TID 02/05/16 02/05/16 02/05/16 History 899 Plaquenil 400 mg PO QDAY 02/05/16 02/05/16 01/20/16 09:00 History Tobramycin 0.3% [Tobrex] 1 drop OU Q6H #1 bottle 02/05/16 Unknown Rx diazePAM TAB [Valium] 5 mg PO TID PRN #14 tablet 02/05/16 Unknown Rx HYDROcodone/APAP 10-325 [[place] 1 each PO Q8HR PRN #10 tablet 07/29/16 Unknown Rx 10-325 mg TAB] Nystatin/Triamcin (Nf) [Mycolog 1 applicatio TP BID #1 tube 07/29/16 Unknown Rx Cream] Active Meds: Active Medications Acetaminophen (Tylenol) 650 mg PO Q6H PRN PRN Reason: Pain, Mild (1-3) Albuterol/Ipratropium (Duoneb *Not For Prn Use*) 1 ampul IH TIDRT [facility] Last Admin: 06/18/18 07:39 Dose: Not Given Documented by: Arformoterol Tartrate (Brovana Nebu) 15 mcg IH Q12HRT [facility] Last Admin: 06/18/18 07:38 Dose: 15 mcg Documented by: Aspirin (Aspirin) 325 mg PO QDAY [facility] Last Admin: 06/18/18 10:49 Dose: 325 mg Documented by: Atenolol (Tenormin) 25 mg PO QDAY [facility] Last Admin: 06/18/18 10:51 Dose: 25 mg Documented by: Budesonide (Pulmicort) 1 mg IH Q12HRT [facility] Last Admin: 06/18/18 07:37 Dose: 1 mg Documented by: Cyclobenzaprine HCl (Flexeril) 10 mg PO Q8H PRN PRN Reason: Muscle Spasm Last Admin: 06/18/18 06:43 Dose: 10 mg Documented by: Diazepam (Valium) 5 mg PO TID PRN PRN Reason: Muscle Spasm Last Admin: 06/16/18 18:40 Dose: 5 mg Documented by: Gabapentin (Neurontin) 1,600 mg PO TID [facility] Last Admin: 06/18/18 08:39 Dose: 1,600 mg Documented by: Hydroxychloroquine Sulfate (Plaquenil) 400 mg PO QDAY [facility] Last Admin: 06/18/18 10:49 Dose: 400 mg Documented by: Levothyroxine Sodium (Synthroid) 25 mcg PO DAILY@0600 [facility] Last Admin: 06/18/18 06:34 Dose: 25 mcg Documented by: Levothyroxine Sodium (Synthroid) 112 mcg PO QDAY@0600 [facility] Last Admin: 06/18/18 06:34 Dose: 112 mcg Documented by: Metoclopramide HCl (Reglan) 5 mg IV TID [facility] Last Admin: 06/18/18 08:39 Dose: 5 mg Documented by: Miscellaneous Medication (Nystatin/Triamcin (Nf)) 1 applicatio TP BID [facility] Morphine Sulfate (Morphine) 3 mg IV Q3H PRN PRN Reason: Pain, Moderate (4-6) Last Admin: 06/18/18 11:03 Dose: 3 mg Documented by: Nitroglycerin (Nitrostat) 0.4 mg SL .Q5MIN PRN PRN Reason: Chest Pain Nitroglycerin (Nitro-Bid 2%) 0.5 inch TP QIDNTG [facility]; Protocol Last Admin: 06/18/18 10:51 Dose: 0.5 inch Documented by: Ondansetron HCl (Zofran) 4 mg IV Q8H PRN PRN Reason: Nausea And Vomiting Last Admin: 06/16/18 16:01 Dose: 4 mg Documented by: Tobramycin Sulfate (Tobrex) 1 drops OU Q6H [facility] Last Admin: 06/18/18 12:37 Dose: 1 drops Documented by: Past psychiatric history - Past Medical History Past Medical History: other (Ling [place], Lupus) Past Surgical History: No surgical history - past Psychiatric treatment and history psychiatric treatment history: Denies a psy hx and fam psy hx. - Social History Social history: lives with family Mental Status Exam - Vital signs Last Vital Signs Temp 98.6 F 06/18/18 08:50 Pulse 68 06/18/18 10:51 Resp 20 06/18/18 11:03 BP 112/76 06/18/18 10:51 Pulse Ox 96 06/18/18 08:50 - Exam Narrative exam: MSE: Appearance: calm, cooperative Behavior: regular eye contact Speech: regular rate and tone Mood: "okay" Affect: congruent to mood Thought Process: logical Thought Content: denies SI/HI's and AVH's Motor Activity: sitting up in bed Cognition: A/O x 3 Insight: appropriate Judgment: appropriate Results Result Diagrams: 06/15/18 19:14 06/15/18 19:14 All other labs normal. Assessment and Plan Assessment and plan: Impression: Adjustment DO. Today the patient is calm and cooperative during the assessment. The patient is no threat to self. Recommendation/Plan: Rescind 1013. Dipso: The patient can follow up with [facility] outpatient psy services (Therapy). Staffed with Dr Casanova.
[2018-06-18 15:03] VITALS: BP 115/78
--- NOTE | 2018-06-18 15:07 | Discharge Summary ---
Providers - Providers Date of Admission: 06/15/18 22:46 Date of discharge: 06/18/18 Attending physician: BETTINA YATES 06/16/18 05:15 Consult to Physician [CONS] Routine Comment: Consulting Provider: MUNIRA KING Physician Instructions: Reason For Exam: LUNG CANCER WITH METASTASIS TO THE LUNGS 06/17/18 14:39 Consult to Mental Health [CONS] Routine Reason For Exam: Suicidal Place consult to:: Psych Notified:: Debbie BLANCO Phone number called:: Ext. [phone] Was contact made?: Yes If yes, spoke with:: [facility]-mental health Time called:: 15:20 Hospitalization Condition: Fair Hospital course: Patient is 48 yo with lung cancer with metastases to liver, hypertension, lupus. She was being treated at [facility] but has not been following up because she is homeless. She presented with chest pain. CTA was negative for pulmonary embolism but shows Lung cancer, bilateral lung metastases, liver lesions. This was discussed with her. She was evaluated by Cardiology and Oncology. Patient eventually decided on inpatient hospice. This was arranged by Case management and she was discharged to [facility]. Total time spent on discharge, 33 mins Disposition: [place] ([facility]) - Discharge Diagnoses (1) Chronic pain Status: Acute (2) Homeless Status: Acute (3) Lupus Status: Acute (4) Metastatic lung cancer (metastasis from lung to other site) Status: Acute Core Measure Documentation - Palliative Care Palliative Care/ Comfort Measures: Not Applicable - Core Measures Any of the following diagnoses?: none Exam - Constitutional Vitals: Temp Pulse Resp BP Pulse Ox 98.6 F 68 20 112/76 96 06/18/18 08:50 06/18/18 10:51 06/18/18 11:03 06/18/18 10:51 06/18/18 08:50 Plan Activity: advance as tolerated Diet: low fat, low cholesterol, low salt Additional Instructions: 1. Transfer to inpatient hospice to care of Medical Technologist. Follow up with: RADHA MCKENZIE [Other] - 7 Days
--- NOTE | 2018-06-18 18:54 | Hem/Onc Progress Note ---
Assessment and Plan 1. History of stage IV lung cancer with liver mets. 2. Status post one session of chemotherapy, two chemotherapy agents were used in April 2018. After that, she has not been able to go back. 3. Homeless. 4. Financial issues. 5. History of active smoking. 6. History of thyroid disorder. 7. History of systemic lupus erythematosus? 8. History of hypertension. 9. Slightly elevated MCV. 10. Elevated D-dimer. PLAN: I will follow the patient during inpatient stay. The patient being homeless makes it challenging. She can come to the clinic and we will look into investigating into the markers to decide if oral medications can be used and see if free supply of the same medications can be given. However, she needs to make an appointment in the clinic to go over this procedure. pt looking into hospice headache - will look into CT head 06/18 - CT head - neg was placed undeer suicide watch - Patient Problems (1) Metastatic lung cancer (metastasis from lung to other site) Status: Acute Subjective Date of service: 06/18/18 Principal diagnosis: lung ca Interval history: wants to go home Objective - Constitutional Vitals: Last Vital Signs Temp 98.6 F 06/18/18 08:50 Pulse 85 06/18/18 14:52 Resp 20 06/18/18 15:14 BP 115/78 06/18/18 14:52 Pulse Ox 96 06/18/18 08:50 Pain Intensity (0-10): 1/10 (headache) General appearance: no acute distress Performance status: 1-light work, ambulatory - EENT Eyes: EOM intact ENT: clear oral mucosa Lymph node exam: negative cervical, negative supraclavicular - Neck Neck: normal ROM - Respiratory Respiratory: bilateral: CTA - Cardiovascular Heart Sounds: Present: S1 & S2 Extremities: No edema - Gastrointestinal General gastrointestinal: Present: soft, non-tender Rectal Exam: deferred - Genitourinary Female genitourinary: Present: deferred - Integumentary Integumentary: warm - Musculoskeletal Musculoskeletal: strength equal bilaterally - Neurologic Neurologic: moves all extremities - Psychiatric Psychiatric: appropriate mood/affect Medications & Allergies - Medications Allergies/Adverse Reactions: Allergies codeine Allergy (Verified 01/13/16 10:17) Unknown meperidine HCl [From Demerol] Allergy (Verified 02/05/16 16:15) Anaphylaxis peanut Allergy (Verified 06/16/18 15:21) Shortness of Breath pregabalin [From Lyrica] Allergy (Verified 01/13/16 10:17) Unknown quetiapine fumarate [From Seroquel] Allergy (Verified 01/13/16 10:17) Unknown tramadol HCl [From Ultram] Allergy (Verified 01/13/16 10:17) Unknown venlafaxine HCl [From Effexor] Allergy (Verified 02/05/16 16:15) Anaphylaxis Barley Allergy (Uncoded 06/16/18 15:20) Shortness of Breath [place] Allergy (Uncoded 06/16/18 15:20) Shortness of Breath Home Medications: Home Medications Medication Instructions Recorded Confirmed Last Taken Type Advair Diskus 500-50 mcg 500 mcg INHALATION QDAY 02/05/16 02/05/16 Unknown History Atenolol 25 mg PO QDAY 02/05/16 02/05/16 02/05/16 History 899 Baclofen 10 mg PO TID 02/05/16 02/05/16 Unknown History Combivent Inhaler 4 g INHALATION TID 02/05/16 02/05/16 Unknown History Ipratropium 1.25 ml INHALATION TID 02/05/16 02/05/16 Unknown History Levothyroxine 0.137 mg PO QDAY 02/05/16 02/05/16 02/05/16 History 899 Levothyroxine Sodium 137 mcg PO QAM 02/05/16 02/05/16 02/05/16 History [Levothyroxine] 899 Neurontin 1,600 mg PO TID 02/05/16 02/05/16 02/05/16 History 09 Plaquenil 400 mg PO QDAY 02/05/16 02/05/16 01/20/16 09:00 History Tobramycin 0.3% [Tobrex] 1 drop OU Q6H #1 bottle 02/05/16 Unknown Rx diazePAM TAB [Valium] 5 mg PO TID PRN #14 tablet 02/05/16 Unknown Rx HYDROcodone/APAP 10-325 [[place] 1 each PO Q8HR PRN #10 tablet 07/29/16 Unknown Rx 10-325 mg TAB] Nystatin/Triamcin (Nf) [Mycolog 1 applicatio TP BID #1 tube 07/29/16 Unknown Rx Cream]
[2018-06-18] MEDS ORDERED: PULMICORT IH SCH (20:00)
== END 2018-06-18 18:20 | disposition hospice, inpatient (51) | DRG 180 ==
LOC: ED 18:02 → 4A 22:46
PROVIDERS: ADMIT Internal Medicine; ATTEND Internal Medicine
PROC: 3E0234Z Introduction of Serum, Toxoid and Vaccine into Muscle, Percutaneous Approach (ICD-10-PCS; principal; 2018-06-16)
DX: C34.90 Malignant neoplasm of unspecified part of unspecified bronchus or lung (principal); J96.00 Acute respiratory failure, unspecified whether with hypoxia or hypercapnia; C78.7 Secondary malignant neoplasm of liver and intrahepatic bile duct; M32.9 Systemic lupus erythematosus, unspecified; G89.29 Other chronic pain; R07.89 Other chest pain; I10 Essential (primary) hypertension; F43.20 Adjustment disorder, unspecified; M19.90 Unspecified osteoarthritis, unspecified site; F17.210 Nicotine dependence, cigarettes, uncomplicated; Z59.0 Homelessness; Z88.5 Allergy status to narcotic agent; Z91.010 Allergy to peanuts; Z23 Encounter for immunization
CPT/HCPCS: 36415; 70470; 71046; 71275; 80048; 82550; 82553; 84484; 84703; 85025; 85379; 87116; 90686; 90732; 93005; 93010; 94640; 94760; 99406; G0378; J1885; J2270; J2405; J2765; Q9967

== ENCOUNTER 2018-06-27 18:42 | Emergency (ER) | payer MEDICAID ==
[2018-06-27 19:33] VITALS: BP 126/90
[2018-06-27] MEDS ORDERED: DILAUDID IV ONE (19:48)
[2018-06-27] MEDS ORDERED: ZOFRAN IV ONE (19:48)
--- NOTE | 2018-06-27 20:06 | Emergency Department Report ---
ED Abdominal Pain HPI - General Chief Complaint: Chest Pain Stated Complaint: ABDOMINAL PAIN/CHILLS Source: patient, EMS Mode of arrival: Stretcher Limitations: Physical Limitation - History of Present Illness Initial Comments: 47 YO Female currently under Hospice Care, Homeless, with Stage 4 Metastatic lung cancer presents to ED for evaluation for exacerbation of chronic pain. Patient is experiencing pain to her chest and abdomen and states does not currently have any pain medication. Patient was recently admitted here and discharged into hospice. She was homeless prior to admission and arrangements were made for her to leave at extended stay hotel. Her 2 sons are also homeless. Dr Brown the hospitalist is very familiar with the patient and states that he just coordinated a delivery of [facility] to the patient's current residence. Patient and her sons are suspected either abusing or selling the narcotic medication and that she should have medication at home. He will consult on the patient in the ED. Severity scale (0 -10): 10 - Related Data Home Medications Medication Instructions Recorded Confirmed Last Taken Advair Diskus 500-50 mcg 500 mcg INHALATION QDAY 02/05/16 02/05/16 Unknown Atenolol 25 mg PO QDAY 02/05/16 02/05/16 02/05/16 0900 Baclofen 10 mg PO TID 02/05/16 02/05/16 Unknown Combivent Inhaler 4 g INHALATION TID 02/05/16 02/05/16 Unknown Ipratropium 1.25 ml INHALATION TID 02/05/16 02/05/16 Unknown Levothyroxine 0.137 mg PO QDAY 02/05/16 02/05/16 02/05/16 0900 Levothyroxine Sodium 137 mcg PO QAM 02/05/16 02/05/16 02/05/16 [Levothyroxine] 0900 Neurontin 1,600 mg PO TID 02/05/16 02/05/16 02/05/16 0900 Plaquenil 400 mg PO QDAY 02/05/16 02/05/16 01/20/16 09:00 Previous Rx's Medication Instructions Recorded Last Taken Type Tobramycin 0.3% [Tobrex] 1 drop OU Q6H #1 bottle 02/05/16 Unknown Rx diazePAM TAB [Valium] 5 mg PO TID PRN #14 tablet 02/05/16 Unknown Rx HYDROcodone/APAP 10-325 [[place] 1 each PO Q8HR PRN #10 tablet 07/29/16 Unknown Rx 10-325 mg TAB] Nystatin/Triamcin (Nf) [Mycolog 1 applicatio TP BID #1 tube 07/29/16 Unknown Rx Cream] Morphine Concentrate [MORPHINE 10 mg PO Q4HR PRN #30 ml 06/27/18 Unknown Rx Conc 20 MG/ML ORAL LIQ] hydrOXYzine PAMOATE [Vistaril] 50 mg PO QHS PRN #30 capsule 06/27/18 Unknown Rx Allergies Allergy/AdvReac Type Severity Reaction Status Date / Time codeine Allergy Unknown Verified 01/13/16 10:17 meperidine HCl [From Demerol] Allergy Anaphylaxis Verified 02/05/16 16:15 peanut Allergy Shortness Verified 06/16/18 15:21 of Breath pregabalin [From Lyrica] Allergy Unknown Verified 01/13/16 10:17 quetiapine fumarate Allergy Unknown Verified 01/13/16 10:17 [From Seroquel] tramadol HCl [From Ultram] Allergy Unknown Verified 01/13/16 10:17 venlafaxine HCl Allergy Anaphylaxis Verified 02/05/16 16:15 [From Effexor] [place] Allergy Shortness Uncoded 06/16/18 15:20 of Breath [place] Allergy Shortness Uncoded 06/16/18 15:20 of Breath ED Review of Systems ROS: Stated complaint: ABDOMINAL PAIN/CHILLS Other details as noted in HPI Comment: All other systems reviewed and negative ED Past Medical Hx - Past Medical History Previous Medical History?: Yes Hx Hypertension: Yes Hx Heart Attack/AMI: No Hx Congestive Heart Failure: No Hx Diabetes: No Hx Deep Vein Thrombosis: No Hx Pulmonary Embolism: No Hx Liver Disease: Yes (cancer) Hx Renal Disease: Yes (cancer) Hx of Cancer: Yes (kidney, both lungs, liver) Hx Arthritis: Yes Hx Seizures: No Hx Asthma: Yes Hx COPD: Yes Hx Tuberculosis: No Additional medical history: LUPUS, hyperthyroid, "nerve damage". Lung CA with mets to liver (04/2018) - Surgical History Past Surgical History?: Yes Hx Coronary Stent: No Hx Pacemaker: No Hx Internal Defibrillator: No Hx Appendectomy: Yes Additional Surgical History: hyperthyroid, hernia repair, thyroid removal - Social History Smoking Status: Never Smoker Substance Use Type: None - Medications Home Medications: Home Medications Medication Instructions Recorded Confirmed Last Taken Type Advair Diskus 500-50 mcg 500 mcg INHALATION QDAY 02/05/16 02/05/16 Unknown History Atenolol 25 mg PO QDAY 02/05/16 02/05/16 02/05/16 History 899 Baclofen 10 mg PO TID 02/05/16 02/05/16 Unknown History Combivent Inhaler 4 g INHALATION TID 02/05/16 02/05/16 Unknown History Ipratropium 1.25 ml INHALATION TID 02/05/16 02/05/16 Unknown History Levothyroxine 0.137 mg PO QDAY 02/05/16 02/05/16 02/05/16 History 899 Levothyroxine Sodium 137 mcg PO QAM 02/05/16 02/05/16 02/05/16 History [Levothyroxine] 899 Neurontin 1,600 mg PO TID 02/05/16 02/05/16 02/05/16 History 899 Plaquenil 400 mg PO QDAY 02/05/16 02/05/16 01/20/16 09:00 History Tobramycin 0.3% [Tobrex] 1 drop OU Q6H #1 bottle 02/05/16 Unknown Rx diazePAM TAB [Valium] 5 mg PO TID PRN #14 tablet 02/05/16 Unknown Rx HYDROcodone/APAP 10-325 [[place] 1 each PO Q8HR PRN #10 tablet 07/29/16 Unknown Rx 10-325 mg TAB] Nystatin/Triamcin (Nf) [Mycolog 1 applicatio TP BID #1 tube 07/29/16 Unknown Rx Cream] Morphine Concentrate [MORPHINE 10 mg PO Q4HR PRN #30 ml 06/27/18 Unknown Rx Conc 20 MG/ML ORAL LIQ] hydrOXYzine PAMOATE [Vistaril] 50 mg PO QHS PRN #30 capsule 06/27/18 Unknown Rx ED Physical Exam - General Limitations: Physical Limitation - Other Other exam information: General: No limitations, patient is alert in no acute distress Head exam: Atraumatic, normocephalic Eyes exam: Normal appearance ENT: Moist mucous membrane, normal oropharynx Neck exam: Normal inspection, full range of motion, no meningismus nontender Respiratory exam: Mild end expiratory wheeze without respiratory distress, or tachypnea. Cardiovascular: Regular rate and rhythm at rest. Chest wall tender to palpation Abdomen: Soft, nondistended, generalized abdominal tenderness, with normal bowel sounds, no rebound, or guarding Extremity: Full range of motion normal inspection no deformity Back: Normal Inspection, full range of motion, no tenderness Neurologic: Alert, oriented x3, cranial nerves intact, no motor or sensory deficit Psychiatric: normal affect, normal mood Skin: Warm, dry, intact ED Course Vital Signs 06/27/18 06/27/18 06/27/18 19:18 19:26 20:10 Temperature 98.8 F 98.8 F Pulse Rate 108 H 102 H Respiratory 18 18 18 Rate Blood Pressure 126/90 Blood Pressure 126/90 126/90 [Left] O2 Sat by Pulse 98 98 Oximetry ED Medical Decision Making - EKG Data -: EKG Interpreted by Me EKG shows normal: sinus rhythm, axis (qrs 55), QRS complexes (qrsd 88), ST-T waves (no stemi) Rate: tachycardia (102) - Medical Decision Making Patient received 1 dose of Dilaudid and Zofran while in the ED. Dr Brown provid ed a script for liquid Morphine. pt will be d/dwain home Patient requesting a medication to sleep and therefore will prescribe Vistaril daily at bedtime. - Differential Diagnosis chronic pain, drug-seeking, drug abuse Critical Care Time: No Critical care attestation.: If time is entered above; I have spent that time in minutes in the direct care of this critically ill patient, excluding procedure time. ED Disposition Clinical Impression: Drug-seeking behavior, Chronic pain, Metastatic lung cancer (metastasis from lung to other site) Disposition: - TO HOME OR SELFCARE Is pt being admited?: No Does the pt Need Aspirin: No Condition: Stable Instructions: Chronic Pain (ED) Additional Instructions: Take the medication as prescribed. Follow up with your doctor. Return if symptoms worsen as indicated by your discharge instructions Prescriptions: hydrOXYzine PAMOATE [Vistaril] 50 mg PO QHS PRN #30 capsule PRN Reason: Insomnia Morphine Concentrate [MORPHINE Conc 20 MG/ML ORAL LIQ] 10 mg PO Q4HR PRN #30 ml PRN Reason: Pain , Severe (7-10) Referrals: your, doctor [Other] - 2-3 Days Time of Disposition: 21:08
--- NOTE | 2018-06-27 20:23 | Consultation ---
History of Present Illness - Reason for Consult Consult date: 06/27/18 Requesting physician: DULCE BEAULIEU - History of Present Illness 47 YO Female currently under Hospice Care, Homeless, with Stage 4 Metastatic lung cancer presents to ED for evaluation. Pt states that she has experienced pain. Pt seen and evaluated in ED and treated with narcotic therapy. Pt currently under hospice care and receives scheduled and PRN narcotic medication directly from hospice pharmacy, as per hospice care team. Pt medically optimized and discharged to hospice care under care of medical transcriptionist. Pt complains of pain out of proportion to exam and interview. Pt exhibits drug seeking behavior. Past History Past Medical History: arthritis, cancer, hypertension Past Surgical History: thyroidectomy, hernia repair Social history: , other (Homeless) Family history: no significant family history Medications and Allergies Allergies Allergy/AdvReac Type Severity Reaction Status Date / Time codeine Allergy Unknown Verified 01/13/16 10:17 meperidine HCl [From Demerol] Allergy Anaphylaxis Verified 02/05/16 16:15 peanut Allergy Shortness Verified 06/16/18 15:21 of Breath pregabalin [From Lyrica] Allergy Unknown Verified 01/13/16 10:17 quetiapine fumarate Allergy Unknown Verified 01/13/16 10:17 [From Seroquel] tramadol HCl [From Ultram] Allergy Unknown Verified 01/13/16 10:17 venlafaxine HCl Allergy Anaphylaxis Verified 02/05/16 16:15 [From Effexor] [place] Allergy Shortness Uncoded 06/16/18 15:20 of Breath [place] Allergy Shortness Uncoded 06/16/18 15:20 of Breath Home Medications Medication Instructions Recorded Confirmed Last Taken Type Advair Diskus 500-50 mcg 500 mcg INHALATION QDAY 02/05/16 02/05/16 Unknown History Atenolol 25 mg PO QDAY 02/05/16 02/05/16 02/05/16 History 899 Baclofen 10 mg PO TID 02/05/16 02/05/16 Unknown History Combivent Inhaler 4 g INHALATION TID 02/05/16 02/05/16 Unknown History Ipratropium 1.25 ml INHALATION TID 02/05/16 02/05/16 Unknown History Levothyroxine 0.137 mg PO QDAY 02/05/16 02/05/16 02/05/16 History 0900 Levothyroxine Sodium 137 mcg PO QAM 02/05/16 02/05/16 02/05/16 History [Levothyroxine] 899 Neurontin 1,600 mg PO TID 02/05/16 02/05/16 02/05/16 History 899 Plaquenil 400 mg PO QDAY 02/05/16 02/05/16 01/20/16 09:00 History Tobramycin 0.3% [Tobrex] 1 drop OU Q6H #1 bottle 02/05/16 Unknown Rx diazePAM TAB [Valium] 5 mg PO TID PRN #14 tablet 02/05/16 Unknown Rx HYDROcodone/APAP 10-325 [[place] 1 each PO Q8HR PRN #10 tablet 07/29/16 Unknown Rx 10-325 mg TAB] Nystatin/Triamcin (Nf) [Mycolog 1 applicatio TP BID #1 tube 07/29/16 Unknown Rx Cream] Review of Systems Constitutional: no weight loss, no weight gain, no fever, no chills Ears, nose, mouth and throat: no ear pain, no ear discharge, no tinnitis, no decreased hearing, no nose pain Breasts: no change in shape, no swelling, no mass Cardiovascular: no chest pain, no orthopnea, no rapid/irregular heart beat Respiratory: no cough, no excessive sputum, no hemoptysis, no shortness of breath, no dyspnea on exertion Gastrointestinal: no nausea, no vomiting, no diarrhea, no constipation Genitourinary Female: no pelvic pain, no flank pain, no urgency, no post void dribbling Rectal: no pain, no incontinence, no bleeding Musculoskeletal: no neck stiffness, no neck pain, no low back pain Integumentary: no rash, no pruritis, no sores, no boils Neurological: no paralysis, no weakness, no parathesias, no numbness, no tingling, no seizures Psychiatric: no anxiety, no memory loss, no sleep disturbances, no insomnia, no hypersomnia Endocrine: no cold intolerance, no heat intolerance, no polyphagia, no excessive thirst, no polyuria Hematologic/Lymphatic: no easy bruising, no easy bleeding, no lymphadenopathy, no lymphedema Allergic/Immunologic: no urticaria, no allergic rhinitis, no persistent infections, no anaphylaxis, no angioedema Exam - Constitutional Vitals: Temp Pulse Resp BP Pulse Ox 98.8 F 102 H 18 126/90 98 06/27/18 19:26 06/27/18 19:26 06/27/18 20:10 06/27/18 19:26 06/27/18 19:26 General appearance: Present: no acute distress, well-nourished - EENT Eyes: Present: PERRL ENT: hearing intact, clear oral mucosa - Neck Neck: Present: supple, normal ROM - Respiratory Respiratory effort: normal Respiratory: bilateral: CTA - Cardiovascular Heart Sounds: Present: S1 & S2. Absent: rub, click - Extremities Extremities: pulses symmetrical, No edema Peripheral Pulses: within normal limits - Abdominal General gastrointestinal: Present: soft, non-tender, non-distended, normal bowel sounds Female genitourinary: Present: normal - Integumentary Integumentary: Present: clear, warm, dry - Musculoskeletal Musculoskeletal: gait normal, strength equal bilaterally - Psychiatric Psychiatric: appropriate mood/affect, intact judgment & insight - Neurologic Neurologic: CNII-XII intact, moves all extremities Assessment and Plan - Patient Problems (1) Metastatic lung cancer (metastasis from lung to other site) Status: Acute Plan to address problem: Pt discharged to hospice under care of medical transcriptionist. (2) Homeless Status: Acute Plan to address problem: Pt discharged. (3) Drug-seeking behavior Status: Acute Plan to address problem: Pt complains of pain out of proportion to exam and interview. Pt currently receiving scheduled and prn narcotics directly from Hospice care team.
== END 2018-06-27 22:50 | disposition home or self-care (01) ==
LOC: ED 18:42
DX: C34.90 Malignant neoplasm of unspecified part of unspecified bronchus or lung (principal); C79.9 Secondary malignant neoplasm of unspecified site; G89.29 Other chronic pain; R07.89 Other chest pain; R10.9 Unspecified abdominal pain; E89.0 Postprocedural hypothyroidism; I10 Essential (primary) hypertension; M19.90 Unspecified osteoarthritis, unspecified site; J44.9 Chronic obstructive pulmonary disease, unspecified; Z90.49 Acquired absence of other specified parts of digestive tract; Z79.899 Other long term (current) drug therapy; Z76.5 Malingerer [conscious simulation]; Z88.6 Allergy status to analgesic agent; Z88.8 Allergy status to other drugs, medicaments and biological substances; Z91.010 Allergy to peanuts; Z91.018 Allergy to other foods
CPT/HCPCS: 93005; 93010; 96374; 96375; 99284; J1170; J2405

== ENCOUNTER 2018-09-03 12:25 | Inpatient (IN) | payer MEDICAID ==
[2018-09-03] MEDS ORDERED: NACL 0.9% 1000 ML 1,000 ML IV ONE (12:56)
--- NOTE | 2018-09-03 13:04 | Emergency Department Report ---
HPI - General Chief Complaint: Altered Mental Status Time Seen by Provider: 09/03/18 12:48 - HPI HPI: Room 26 The patient is a 48-year-old female presenting with chief complaint of altered mental status. The patient has a history of lung CA with metastases to liver and brain and per family last received radiation several months ago. The patient came home from the nursing facility last night and then states she appeared anxious and Will window. States the patient eventually went to sleep sometime between 02:00-03:00 this morning and was in her normal mental state. Family states the patient was observed occasionally jerking in her sleep. The f mony awaken the patient 11:30 this morning the patient was not behaving like himself and was nonverbal. The patient remains nonverbal and does not answer questions or follow commands. The patient will open her eyes and make eye contact when her name is spoken but she will not speak Location: Mental state Duration: [See above] Quality: Altered Severity: Moderate Modifying factors: [see above] Context: [see above] Mode of transportation: [not driving] ED Past Medical Hx - Past Medical History Previous Medical History?: Yes Hx Hypertension: Yes Hx CVA: Yes Hx Liver Disease: Yes (cancer) Hx Renal Disease: Yes (cancer) Hx of Cancer: Yes (lung with mets to liver and brain) Hx Arthritis: Yes Hx Asthma: Yes Hx COPD: Yes Additional medical history: LUPUS, hyperthyroid, "nerve damage". Lung CA with mets to liver (04/2018) - Surgical History Past Surgical History?: Yes Hx Appendectomy: Yes Additional Surgical History: hyperthyroid, hernia repair, thyroid removal - Family History Family history: no significant - Social History Smoking Status: Current Every Day Smoker Substance Use Type: None - Medications Home Medications: Home Medications Medication Instructions Recorded Confirmed Last Taken Type Amitriptyline [Elavil] 50 mg PO QHS 09/03/18 09/03/18 Unknown History Duloxetine HCl [DULoxetine] 30 mg PO DAILY 09/03/18 09/03/18 Unknown History LORazepam [Ativan] 1 mg PO QHS 09/03/18 09/03/18 Unknown History Levothyroxine [Synthroid] 100 mcg PO QAM 09/03/18 09/03/18 Unknown History Loperamide [Imodium] 2 mg PO DAILY 09/03/18 09/03/18 Unknown History Morphine Sulfate [Morphine Sulfate 30 mg PO BID 09/03/18 09/03/18 Unknown History ER] Prochlorperazine [Compazine] 10 mg PO Q6HR 09/03/18 09/03/18 Unknown History Valsartan 80 mg PO DAILY 09/03/18 09/03/18 Unknown History levETIRAcetam [Keppra] 500 mg PO BID 09/03/18 09/03/18 Unknown History ED Review of Systems ROS: Stated complaint: AMS Other details as noted in HPI Comment: Unobtainable due to pts medical conditions Physical Exam - Physical Exam Vital Signs: Vital Signs 09/03/18 12:32 Temperature 97 F L Pulse Rate 106 H Respiratory 16 Rate Blood Pressure 98/67 O2 Sat by Pulse 99 Oximetry Physical Exam: GENERAL: The patient is well-developed well-nourished female lying on stretcher not appearing to be in acute distress. [] HEENT: Normocephalic. Atraumatic. Extraocular motions are intact. Patient has moist mucous membranes. NECK: Supple. Trachea midline CHEST/LUNGS: Clear to auscultation. There is no respiratory distress noted. HEART/CARDIOVASCULAR: Regular. There is no tachycardia. There is no gallop rub or murmur. ABDOMEN: Abdomen is soft, nontender. Patient has normal bowel sounds. There is no abdominal distention. SKIN: There is no rash. There is no edema. There is no diaphoresis. NEURO: The patient is awake but nonverbal. Patient makes eye contact when her name is spoken will not speak. The patient does not follow commands. MUSCULOSKELETAL: There is no evidence of acute injury. ED Course Vital Signs 09/03/18 12:32 Temperature 97 F L Pulse Rate 106 H Respiratory 16 Rate Blood Pressure 98/67 O2 Sat by Pulse 99 Oximetry ED Medical Decision Making - Lab Data Result diagrams: 09/03/18 12:57 09/03/18 12:57 Laboratory Tests 09/03/18 09/03/18 09/03/18 12:55 12:57 12:57 WBC 3.6 L RBC 3.32 L Hgb 10.0 L Hct 29.9 L MCV 90 MCH 30 MCHC 34 RDW 16.2 H Plt Count 286 Lymph % (Auto) 32.4 [place] % (Auto) 10.2 H Eos % (Auto) 0.6 Baso % (Auto) 0.3 Lymph # 1.2 [place] # 0.4 Eos # 0.0 Baso # 0.0 Seg Neutrophils % 56.5 Seg Neutrophils # 2.0 PT INR APTT Sodium 129 L Potassium 4.8 Chloride 92.4 L Carbon Dioxide 23 Anion Gap 18 BUN 16 Creatinine 1.9 H Estimated GFR 28 BUN/Creatinine Ratio 8 Glucose 104 H Calcium 8.6 Total Bilirubin 0.60 AST 68 H ALT 22 Alkaline Phosphatase 196 H Ammonia Total Creatine Kinase 369 H CK-MB (CK-2) 2.3 CK-MB (CK-2) Rel Index 0.6 Troponin T Total Protein 6.8 Albumin 3.1 L Albumin/Globulin Ratio 0.8 TSH Free T4 Urine Color [place] Urine Turbidity Cloudy Urine pH 5.0 Ur Specific [place] 1.016 Urine Protein 100 mg/dl Urine Glucose (UA) Neg Urine Ketones Neg Urine Blood Neg Urine Nitrite Neg Urine Bilirubin Neg Urine Urobilinogen 2.0 Ur Leukocyte Esterase Neg Urine WBC (Auto) 18.0 H Urine RBC (Auto) 4.0 U Epithel Cells (Auto) 3.0 Urine Bacteria (Auto) 3+ Hyaline Casts 9 Urine Mucus Few Plasma/Serum Alcohol 09/03/18 09/03/18 09/03/18 12:57 12:57 12:57 WBC RBC Hgb Hct MCV MCH MCHC RDW Plt Count Lymph % (Auto) [place] % (Auto) Eos % (Auto) Baso % (Auto) Lymph # [place] # Eos # Baso # Seg Neutrophils % Seg Neutrophils # PT INR APTT Sodium Potassium Chloride Carbon Dioxide Anion Gap BUN Creatinine Estimated GFR BUN/Creatinine Ratio Glucose Calcium Total Bilirubin AST ALT Alkaline Phosphatase Ammonia 51.0 Total Creatine Kinase CK-MB (CK-2) CK-MB (CK-2) Rel Index Troponin T < 0.010 Total Protein Albumin Albumin/Globulin Ratio TSH 8.310 H Free T4 0.98 Urine Color Urine Turbidity Urine pH Ur Specific [place] Urine Protein Urine Glucose (UA) Urine Ketones Urine Blood Urine Nitrite Urine Bilirubin Urine Urobilinogen Ur Leukocyte Esterase Urine WBC (Auto) Urine RBC (Auto) U Epithel Cells (Auto) Urine Bacteria (Auto) Hyaline Casts Urine Mucus Plasma/Serum Alcohol 09/03/18 09/03/18 12:57 13:11 WBC RBC Hgb Hct MCV MCH MCHC RDW Plt Count Lymph % (Auto) [place] % (Auto) Eos % (Auto) Baso % (Auto) Lymph # [place] # Eos # Baso # Seg Neutrophils % Seg Neutrophils # PT 13.2 INR 0.95 APTT 21.0 L Sodium Potassium Chloride Carbon Dioxide Anion Gap BUN Creatinine Estimated GFR BUN/Creatinine Ratio Glucose Calcium Total Bilirubin AST ALT Alkaline Phosphatase Ammonia Total Creatine Kinase CK-MB (CK-2) CK-MB (CK-2) Rel Index Troponin T Total Protein Albumin Albumin/Globulin Ratio TSH Free T4 Urine Color Urine Turbidity Urine pH Ur Specific [place] Urine Protein Urine Glucose (UA) Urine Ketones Urine Blood Urine Nitrite Urine Bilirubin Urine Urobilinogen Ur Leukocyte Esterase Urine WBC (Auto) Urine RBC (Auto) U Epithel Cells (Auto) Urine Bacteria (Auto) Hyaline Casts Urine Mucus Plasma/Serum Alcohol < 0.01 - EKG Data -: EKG Interpreted by Hi EKG shows normal: sinus rhythm Rate: tachycardia (107 bpm) - EKG Data When compared to previous EKG there are: previous EKG unavailable Interpretation: other (no ischemic changes seen) - Radiology Data Radiology results: report reviewed (CT head), image reviewed (CT head) [address] [address] Cat Scan Report Signed Patient: SIA SCHILLING MR# : [id number] : 1970 Acct:[id number] Age/Sex: 48 / F ADM Date: 09/03/18 Loc: ED Attending Dr: Ordering Physician: LOBITO WEN MD Date of Service: 09/03/18 Procedure(s): CT head/brain wo con Accession Number(s): [id number] cc: LOBITO WEN MD CT HEAD WITHOUT CONTRAST INDICATION: Altered mental status. History of lung carcinoma with metastases. COMPARISON: 06/17/2018. FINDINGS: Noncontrast head CT somewhat limited due to patient's head tilt/position, though again demonstrates grossly normal ventricles and sulci without definite acute infarct, hemorrhage, mass effect or midline shift, to the extent assessed. However, as on axial series 2, images 26-31, approximately 1 cm subtle peripheral right posterior temporal-inferior parietal lesion not entirely excluded. Grossly normal posterior fossa and symmetric eye globes. Leftward nasal septal deviation and approximately 3 mm leftward nasal septal spur. Aplastic/hypoplastic right frontal sinus. Clear remainder imaged paranasal sinuses and mastoid air cells. Right more than left external auditory canal debris may be directly visualized. Normal calvarium and scalp. Edentulous jaw. CONCLUSION: 1. Approximately 1 cm subtle right posterior temporal-parietal hypodense lesion now difficult to entirely exclude for metastatic disease, as described. Please also correlate clinically and further evaluate on contrast enhanced MRI, if so appropriate. 2. Few other incidental findings, as above. Thank you for the opportunity to participate in this patient's care. Transcribed By: RS Dictated By: ENMA VICTOR MD Electronically Authenticated By: ENMA VICTOR MD Signed Date/Time: 09/03/181435 DD/ 27 TD/TT: 09/03/181435 - Differential Diagnosis altered mental status, brain metastases, ICH, hyperammonemia Critical care attestation.: If time is entered above; I have spent that time in minutes in the direct care of this critically ill patient, excluding procedure time. ED Disposition Clinical Impression: Altered mental status, Acute renal insufficiency, UTI (urinary tract infection) Disposition: OP ADMIT IP TO THIS HOSP Is pt being admited?: Yes Does the pt Need Aspirin: No Condition: Fair Referrals: PRIMARY CARE, [Primary Care Provider] - 3-5 Days Time of Disposition: 14:41 (Hospitalist notified (Dr Brown))
[2018-09-03 13:24] LABS: Basophils % (Auto) 0.3 % (0.0-1.8); Eosinophils % (Auto) 0.6 % (0.0-4.3); Hematocrit 29.9 % (30.3-42.9); Lymphocytes # (Auto) 1.2 K/mm3 (1.2-5.4); Lymphocytes % (Auto) 32.4 % (13.4-35.0); Mean Corpuscular HGB Conc 34 % (30-34); Mean Corpuscular Volume 90 fl (79-97); Monocytes # (Auto) 0.4 K/mm3 (0.0-0.8); Monocytes % (Auto) 10.2 % (0.0-7.3); Platelet Count 286 K/mm3 (140-440); Red Blood Count 3.32 M/mm3 (3.65-5.03); Red Cell Distribution Width 16.2 % (13.2-15.2)
[2018-09-03 13:24] LABS: Bacteria,Urine 3+ /HPF (Negative); Bilirubin,Urine NEG (Negative); Blood,Urine NEG (Negative); Color,Urine Amber (Yellow); Hyaline Casts,Urine 9 /LPF; Mucus,Urine FEW /HPF
[2018-09-03 13:34] LABS: INR 0.95 (0.87-1.13)
[2018-09-03 13:50] LABS: Creatine Kinase MB 2.3 ng/mL (0.0-4.0)
[2018-09-03 13:55] LABS: Albumin 3.1 g/dL (3.9-5); Calcium 8.6 mg/dL (8.4-10.2)
[2018-09-03 13:58] LABS: Free T4 (Free Thyroxine) 0.98 ng/dL (0.76-1.46)
--- NOTE | 2018-09-03 14:36 | Cat Scan Report ---
CT HEAD WITHOUT CONTRAST INDICATION: Altered mental status. History of lung carcinoma with metastases. COMPARISON: 06/17/2018. FINDINGS: Noncontrast head CT somewhat limited due to patient's head tilt/position, though again demonstrates grossly normal ventricles and sulci without definite acute infarct, hemorrhage, mass effect or midline shift, to the extent assessed. However, as on axial series 2, images 26-31, approximately 1 cm subtle peripheral right posterior temporal-inferior parietal lesion not entirely excluded. Grossly normal posterior fossa and symmetric eye globes. Leftward nasal septal deviation and approximately 3 mm leftward nasal septal spur. Aplastic/hypoplastic right frontal sinus. Clear remainder imaged paranasal sinuses and mastoid air cells. Right more than left external auditory canal debris may be directly visualized. Normal calvarium and scalp. Edentulous jaw. CONCLUSION: 1. Approximately 1 cm subtle right posterior temporal-parietal hypodense lesion now difficult to entirely exclude for metastatic disease, as described. Please also correlate clinically and further evaluate on contrast enhanced MRI, if so appropriate. 2. Few other incidental findings, as above. Thank you for the opportunity to participate in this patient's care.
--- NOTE | 2018-09-03 15:15 | History and Physical Report ---
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 Pt is lethargic/Stuporous and Nonverbal and unable to provide history. Pt history provided by daughter in law, who is at bedside during exam and interview. Pt daughter reports that patient was discharged home from [facility] overnight and was in her usual state of health at 0200hrs upon going to bed. Pt was found to be unresponsive around 1130hrs, and was thought by sone to exhibit seizure activity. EMS notified and upon arrival the patient was found to be lethargic, but is ablt to protect her airway. Pt tr ansported to [facility] and found to have Enceophalopathy suspected secondary to brain metastasis, ARF, Hyponatremia, and UTI. Pt has poor prognosis. Pt was previously admitted to [facility], however patient was unable to receive service due to lack of physical home address. Pt care plan discussed in detail with family who is at bedside during exam and interview. Pt family request aggressive therapy at this time. Case management consulted for D/C Planning. No further history obtainable. Prior admission on 06/15/18 reviewed. All listed medication reconciled at time of admission. Past History Past Medical History: cancer, seizures, stroke Past Surgical History: appendectomy, thyroidectomy, hernia repair Social history: smoking, alcohol abuse, other (Homelessness) Family history: hypertension Medications and Allergies Allergies Allergy/AdvReac Type Severity Reaction Status Date / Time codeine Allergy Unknown Verified 09/03/18 15:37 meperidine HCl [From Demerol] Allergy Anaphylaxis Verified 09/03/18 15:37 peanut Allergy Shortness Verified 09/03/18 15:37 of Breath pregabalin [From Lyrica] Allergy Unknown Verified 09/03/18 15:37 quetiapine fumarate Allergy Unknown Verified 09/03/18 15:37 [From Seroquel] tramadol HCl [From Ultram] Allergy Unknown Verified 09/03/18 15:37 venlafaxine HCl Allergy Anaphylaxis Verified 09/03/18 15:37 [From Effexor] [place]ley Allergy Shortness Uncoded 06/16/18 15:20 of Breath [place] Allergy Shortness Uncoded 06/16/18 15:20 of Breath Home Medications Medication Instructions Recorded Confirmed Last Taken Type Amitriptyline [Elavil] 50 mg PO QHS 09/03/18 09/03/18 Unknown History Duloxetine HCl [DULoxetine] 30 mg PO DAILY 09/03/18 09/03/18 Unknown History LORazepam [Ativan] 1 mg PO QHS 09/03/18 09/03/18 Unknown History Levothyroxine [Synthroid] 100 mcg PO QAM 09/03/18 09/03/18 Unknown History Loperamide [Imodium] 2 mg PO DAILY 09/03/18 09/03/18 Unknown History Morphine Sulfate [Morphine Sulfate 30 mg PO BID 09/03/18 09/03/18 Unknown History ER] Prochlorperazine [Compazine] 10 mg PO Q6HR 09/03/18 09/03/18 Unknown History Valsartan 80 mg PO DAILY 09/03/18 09/03/18 Unknown History levETIRAcetam [Keppra] 500 mg PO BID 09/03/18 09/03/18 Unknown History Review of Systems ROS unobtainable: due to mental status Exam - Constitutional Vitals: Temp Pulse Resp BP Pulse Ox 97 F L 83 11 L 119/73 100 09/03/18 12:32 09/03/18 14:48 09/03/18 14:48 09/03/18 14:48 09/03/18 14:48 General appearance: Present: severe distress - EENT Eyes: Present: miosis ENT: hearing decreased, poor dentition - Neck Neck: Present: supple, normal ROM - Respiratory Respiratory effort: normal Respiratory: bilateral: diminished - Cardiovascular Heart Sounds: Present: S1 & S2. Absent: rub, click - Extremities Extremities: pulses symmetrical, No edema Peripheral Pulses: within normal limits - Abdominal General gastrointestinal: Present: soft, non-tender, non-distended, normal bowel sounds Female genitourinary: Present: normal - Integumentary Integumentary: Present: jaundice, clammy, decreased turgor - Musculoskeletal Musculoskeletal: generalized weakness - Psychiatric Psychiatric: no appropriate mood/affect, no intact judgment & insight, no memory intact - Neurologic Neurologic: no CNII-XII intact, focal deficits, moves all extremities, no gait normal Results - Labs CBC & Chem 7: 09/03/18 12:57 09/03/18 12:57 Labs: Abnormal lab results 09/03/18 09/03/18 09/03/18 Range/Units 12:55 12:57 12:57 WBC 3.6 L (4.5-11.0) K/mm3 RBC 3.32 L (3.65-5.03) M/mm3 Hgb 10.0 L (10.1-14.3) gm/dl Hct 29.9 L (30.3-42.9) % RDW 16.2 H (13.2-15.2) % [place] % (Auto) 10.2 H (0.0-7.3) % APTT (24.2-36.6) Sec. Sodium 129 L (137-145) mmol/L Chloride 92.4 L (98-107) mmol/L Creatinine 1.9 H (0.7-1.2) mg/dL Glucose 104 H (65-100) mg/dL AST 68 H (5-40) units/L Alkaline Phosphatase 196 H (35-129) units/L Total Creatine Kinase 369 H (30-135) units/L Albumin 3.1 L (3.9-5) g/dL TSH (0.270-4.200) mlU/mL Urine WBC (Auto) 18.0 H (0.0-6.0) /HPF 09/03/18 09/03/18 Range/Units 12:57 13:11 WBC (4.5-11.0) K/mm3 RBC (3.65-5.03) M/mm3 Hgb (10.1-14.3) gm/dl Hct (30.3-42.9) % RDW (13.2-15.2) % [place] % (Auto) (0.0-7.3) % APTT 21.0 L (24.2-36.6) Sec. Sodium (137-145) mmol/L Chloride (98-107) mmol/L Creatinine (0.7-1.2) mg/dL Glucose (65-100) mg/dL AST (5-40) units/L Alkaline Phosphatase (35-129) units/L Total Creatine Kinase (30-135) units/L Albumin (3.9-5) g/dL TSH 8.310 H (0.270-4.200) mlU/mL Urine WBC (Auto) (0.0-6.0) /HPF Assessment and Plan - Patient Problems (1) Metastatic lung cancer (metastasis from lung to other site) Current Visit: No Status: Acute Qualifiers: Laterality: unspecified laterality Qualified Code(s): C34.90 - Malignant neoplasm of unspecified part of unspecified bronchus or lung Plan to address problem: Pain control with Morphine extended release, supplemental oxygen, pulse oximetry, Poor prognosis. Discussed readmission to hospice with family. Awaiting decision regarding end of life care and supportive care. Case management consulted for D/C planning. (2) Encephalopathy Current Visit: Yes Status: Acute Plan to address problem: CT head, neuro check, aspiration precautions, MR brain, NPO unless awake and alert. (3) Acute renal insufficiency Current Visit: Yes Status: Acute Plan to address problem: IVF resuscitation therapy, monitor uop q shift, repeat bmp. (4) UTI (urinary tract infection) Current Visit: Yes Status: Acute Qualifiers: Encounter type: initial encounter Plan to address problem: IV antibiotic therapy, CBC, CMP, urinalysis, (5) Homeless Current Visit: No Status: Acute Plan to address problem: Case management consulted (6) Hyponasality syndrome Current Visit: Yes Status: Acute Plan to address problem: IVF resuscitation therapy, repeat bmp, monitor uop q shift, (7) DVT prophylaxis Current Visit: Yes Status: Acute Plan to address problem: SCD to BLE while in bed, prophylactic heparin
[2018-09-03] MEDS ORDERED: SODIUM CHLORIDE FLUSH SYRINGE 10 ML IV PRN (15:18)
[2018-09-03] MEDS: NACL 0.45% 1000 ML 1,000 ML IV SCH (21:54)
[2018-09-03] MEDS: HEPARIN SUB-Q SCH (21:54)
[2018-09-03] MEDS ORDERED: ATIVAN PO SCH (22:00)
[2018-09-03] MEDS: SODIUM CHLORIDE FLUSH SYRINGE 10 ML IV SCH (22:04)
[2018-09-04] MEDS: ELAVIL PO SCH (01:13)
[2018-09-04] MEDS: COMPAZINE PO SCH ×4 (01:13→17:29)
[2018-09-04] MEDS: KEPPRA PO SCH ×2 (01:13→11:22)
[2018-09-04] MEDS: DIOVAN PO SCH ×2 (01:13→11:21)
[2018-09-04] MEDS: MS CONTIN ER PO SCH ×3 (01:14→22:50)
[2018-09-04] MEDS ORDERED: KEPPRA 500 MG/NS 0.82% 100 ML 500 MG/100 ML BAG IV ONE (01:19)
[2018-09-04] MEDS: ZOFRAN IV PRN ×2 (02:10→16:34)
[2018-09-04] MEDS ORDERED: KEPPRA 500 MG in NACL 0.9% 100 ML IV ONE (02:15)
[2018-09-04 07:20] LABS: Calcium 8.5 mg/dL (8.4-10.2)
[2018-09-04] MEDS: ROCEPHIN/NS 1 GM/50 ML 1 GM/50 ML BAG IV SCH (11:17)
[2018-09-04] MEDS: CYMBALTA PO SCH (11:21)
[2018-09-04] MEDS: IMODIUM PO SCH (11:22)
[2018-09-04] MEDS: SYNTHROID PO SCH (11:28)
[2018-09-04] MEDS: HEPARIN SUB-Q SCH ×2 (11:35→22:55)
[2018-09-04] MEDS: SODIUM CHLORIDE FLUSH SYRINGE 10 ML IV SCH (11:41)
--- NOTE | 2018-09-04 11:52 | Progress Note ---
Assessment and Plan Assessment and plan: --Acute kidney injury; secondary to ATN Improved, continue gentle IV hydration, avoid nephrotoxins Nephrology evaluation if no improvement --Urinary tract infection; continue empiric antibiotics Follow cultures, IV fluids, -- History of metastatic lung cancer; Patient is a hospice candidate, consult hospice for evaluation --Hyponatremia; gradual improvement Continue current management, follow electrolytes --Moderate malnutrition; albumin 3.1 Supportive care, nutrition supplements --Discharge planning; per case management --Full code status Hospice consult Closely monitor the patient and adjust management as needed History Interval history: Patient seen and examined medical records reviewed Patient looks chronically ill, cachectic Complains of generalized weakness Alert awake oriented Vital signs reviewed Hospitalist Physical - Constitutional Vitals: Temp Pulse Resp BP Pulse Ox 98.1 F 107 H 18 117/76 99 09/04/18 04:38 09/04/18 04:38 09/04/18 04:38 09/04/18 04:38 09/04/18 10:00 General appearance: Present: mild distress, cachectic, disheveled - EENT Eyes: Present: PERRL, EOM intact - Neck Neck: Present: supple, normal ROM - Respiratory Respiratory effort: normal Respiratory: bilateral: diminished, rhonchi, negative: rales, wheezing - Cardiovascular Rhythm: regular Heart Sounds: Present: S1 & S2 - Extremities Extremities: no ischemia, No edema - Abdominal General gastrointestinal: soft, non-tender, non-distended, normal bowel sounds - Integumentary Integumentary: Present: clear, warm - Psychiatric Psychiatric: other (minimally communicative) - Neurologic Neurologic: moves all extremities Results - Labs CBC & Chem 7: 09/03/18 12:57 09/04/18 06:00 Labs: Laboratory Last Values WBC 3.6 K/mm3 (4.5-11.0) L 09/03/18 12:57 RBC 3.32 M/mm3 (3.65-5.03) L 09/03/18 12:57 Hgb 10.0 gm/dl (10.1-14.3) L 09/03/18 12:57 Hct 29.9 % (30.3-42.9) L 09/03/18 12:57 MCV 90 fl (79-97) 09/03/18 12:57 MCH 30 pg (28-32) 09/03/18 12:57 MCHC 34 % (30-34) 09/03/18 12:57 RDW 16.2 % (13.2-15.2) H 09/03/18 12:57 Plt Count 286 K/mm3 (140-440) 09/03/18 12:57 Lymph % (Auto) 32.4 % (13.4-35.0) 09/03/18 12:57 [place] % (Auto) 10.2 % (0.0-7.3) H 09/03/18 12:57 Eos % (Auto) 0.6 % (0.0-4.3) 09/03/18 12:57 Baso % (Auto) 0.3 % (0.0-1.8) 09/03/18 12:57 Lymph # 1.2 K/mm3 (1.2-5.4) 09/03/18 12:57 [place] # 0.4 K/mm3 (0.0-0.8) 09/03/18 12:57 Eos # 0.0 K/mm3 (0.0-0.4) 09/03/18 12:57 Baso # 0.0 K/mm3 (0.0-0.1) 09/03/18 12:57 Seg Neutrophils % 56.5 % (40.0-70.0) 09/03/18 12:57 Seg Neutrophils # 2.0 K/mm3 (1.8-7.7) 09/03/18 12:57 PT 13.2 Sec. (12.2-14.9) 09/03/18 13:11 INR 0.95 (0.87-1.13) 09/03/18 13:11 APTT 21.0 Sec. (24.2-36.6) L 09/03/18 13:11 Sodium 133 mmol/L (137-145) L 09/04/18 06:00 Potassium 4.5 mmol/L (3.6-5.0) 09/04/18 06:00 Chloride 96.1 mmol/L (98-107) L 09/04/18 06:00 Carbon Dioxide 22 mmol/L (22-30) 09/04/18 06:00 Anion Gap 19 mmol/L 09/04/18 06:00 BUN 14 mg/dL (7-17) 09/04/18 06:00 Creatinine 1.2 mg/dL (0.7-1.2) 09/04/18 06:00 Estimated GFR 48 ml/min 09/04/18 06:00 BUN/Creatinine Ratio 12 % 09/04/18 06:00 Glucose 97 mg/dL (65-100) 09/04/18 06:00 POC Glucose 83 (70-105) 09/04/18 02:29 Calcium 8.5 mg/dL (8.4-10.2) 09/04/18 06:00 Total Bilirubin 0.60 mg/dL (0.1-1.2) 09/03/18 12:57 AST 68 units/L (5-40) H 09/03/18 12:57 ALT 22 units/L (7-56) 09/03/18 12:57 Alkaline Phosphatase 196 units/L (35-129) H 09/03/18 12:57 Ammonia 51.0 umol/L (25-60) 09/03/18 12:57 Total Creatine Kinase 369 units/L (30-135) H 09/03/18 12:57 CK-MB (CK-2) 2.3 ng/mL (0.0-4.0) 09/03/18 12:57 CK-MB (CK-2) Rel Index 0.6 (0-4) 09/03/18 12:57 Troponin T < 0.010 ng/mL (0.00-0.029) 09/03/18 12:57 Total Protein 6.8 g/dL (6.3-8.2) 09/03/18 12:57 Albumin 3.1 g/dL (3.9-5) L 09/03/18 12:57 Albumin/Globulin Ratio 0.8 % 09/03/18 12:57 TSH 8.310 mlU/mL (0.270-4.200) H 09/03/18 12:57 Free T4 0.98 ng/dL (0.76-1.46) 09/03/18 12:57 Urine Color [place] (Yellow) 09/03/18 12:55 Urine Turbidity Cloudy (Clear) 09/03/18 12:55 Urine pH 5.0 (5.0-7.0) 09/03/18 12:55 Ur Specific [place] 1.016 (1.003-1.030) 09/03/18 12:55 Urine Protein 100 mg/dl mg/dL (Negative) 09/03/18 12:55 Urine Glucose (UA) Neg mg/dL (Negative) 09/03/18 12:55 Urine Ketones Neg mg/dL (Negative) 09/03/18 12:55 Urine Blood Neg (Negative) 09/03/18 12:55 Urine Nitrite Neg (Negative) 09/03/18 12:55 Urine Bilirubin Neg (Negative) 09/03/18 12:55 Urine Urobilinogen 2.0 mg/dL (<2.0) 09/03/18 12:55 Ur Leukocyte Esterase Neg (Negative) 09/03/18 12:55 Urine WBC (Auto) 18.0 /HPF (0.0-6.0) H 09/03/18 12:55 Urine RBC (Auto) 4.0 /HPF (0.0-6.0) 09/03/18 12:55 U Epithel Cells (Auto) 3.0 /HPF (0-13.0) 09/03/18 12:55 Urine Bacteria (Auto) 3+ /HPF (Negative) 09/03/18 12:55 Hyaline Casts 9 /LPF 09/03/18 12:55 Urine Mucus Few /HPF 09/03/18 12:55 Plasma/Serum Alcohol < 0.01 % (0-0.07) 09/03/18 12:57 Active Medications - Current Medications Current Medications: Generic Name Dose Route Start Last Admin Trade Name Freq PRN Reason Stop Dose Admin Acetaminophen 650 mg 09/03/18 15:18 Tylenol PO Q4H PRN Pain MILD(1-3)/Fever >100.5/SANTOS Albuterol 2.5 mg 09/03/18 15:18 Proventil IH Q4HRT PRN Shortness Of Breath Amitriptyline HCl 50 mg 09/03/18 22:00 09/04/18 01:13 Elavil PO Not Given QHS KARI Duloxetine HCl 30 mg 09/04/18 10:00 09/04/18 11:21 Cymbalta PO Not Given DAILY KARI Heparin Sodium (Porcine) 5,000 unit 09/03/18 22:00 09/04/18 11:35 Heparin SUB-Q 5,000 unit Q12HR KARI Administration Sodium Chloride 1,000 mls @ 42 mls/hr 09/03/18 16:00 09/03/18 21:54 Nacl 0.45% 1000 Ml IV 42 mls/hr DIRECT KARI Administration Ceftriaxone Sodium 1 gm in 50 mls @ 100 mls/hr 09/04/18 10:00 09/04/18 11:17 Rocephin/Ns 1 Gm/50 Ml IV 100 mls/hr Q24HR KARI Administration Protocol Levetiracetam 500 mg 09/03/18 22:00 09/04/18 11:22 Keppra PO Not Given BID [facility] Levothyroxine Sodium 100 mcg 09/04/18 10:00 09/04/18 11:28 Synthroid PO Not Given QAM [facility] Loperamide HCl 2 mg 09/04/18 10:00 09/04/18 11:22 Imodium PO Not Given DAILY KARI Lorazepam 1 mg 09/03/18 16:19 Ativan IV Q4H PRN Agitation Morphine Sulfate 30 mg 09/03/18 22:00 09/04/18 11:22 Ms Contin Er PO Not Given BID [facility] Morphine Sulfate 4 mg 09/03/18 16:20 Morphine IV Q3H PRN Pain , Severe (7-10) Ondansetron HCl 4 mg 09/03/18 15:18 09/04/18 02:10 Zofran IV 4 mg Q8H PRN Administration Nausea And Vomiting Prochlorperazine Maleate 10 mg 09/03/18 18:00 09/04/18 05:19 Compazine PO Not Given Q6HR KARI Sodium Chloride 10 ml 09/03/18 22:00 09/04/18 11:41 Sodium Chloride Flush Syringe 10 Ml IV 10 ml BID KARI Administration Sodium Chloride 10 ml 09/03/18 15:18 Sodium Chloride Flush Syringe 10 Ml IV PRN PRN LINE FLUSH Valsartan 80 mg 09/03/18 22:00 09/04/18 11:21 Diovan PO Not Given QDAY [facility]
[2018-09-04] MEDS: NACL 0.45% 1000 ML 1,000 ML IV SCH (15:38)
[2018-09-04] MEDS: MORPHINE IV PRN (15:44)
--- NOTE | 2018-09-04 19:41 | Progress Note ---
Assessment and Plan Assessment and plan: --Metabolic encephalopathy; multifactorial Underlying disease process. Severe malnutrition Supportive care --Swallowing evaluation/speech therapy consult Unable to do evaluation as patient was encephalopathy,, not cooperative Reevaluate tomorrow, if cannot be done, start [place] feeds --Metastatic lung cancer; Oxygen IV fluids and pain control, supportive care Patient is from hospice, reconsult hospice --Acute kidney injury; secondary to ATN Significant improvement, a wire nephrotoxins, gentle hydration --Hyponatremia; doesn't on admission, mild improvement Closely monitor electrolytes --Hypothyroidism; continue Synthroid --History of seizures; seizure precautions, antiepileptic medications --DVT prophylaxis; SCDs, heparin --Full CODE STATUS --Hospice consult, for possible inpatient versus at home hospice Versus placement Closely monitor the patient and adjust management as needed History Interval history: Patient seen and examined,no new complaints vital signs reviewed Hospitalist Physical - Constitutional Vitals: Temp Pulse Resp BP Pulse Ox 98.6 F 109 H 19 141/88 94 09/04/18 17:06 09/04/18 17:06 09/04/18 17:06 09/04/18 17:06 09/04/18 17:06 General appearance: Present: mild distress, cachectic, disheveled - EENT Eyes: Present: PERRL, EOM intact - Neck Neck: Present: supple, normal ROM - Respiratory Respiratory effort: normal Respiratory: bilateral: diminished, rhonchi, negative: rales, wheezing - Cardiovascular Rhythm: regular Heart Sounds: Present: S1 & S2 - Extremities Extremities: no ischemia, No edema - Abdominal General gastrointestinal: soft, non-tender, non-distended - Integumentary Integumentary: Present: clear, warm - Psychiatric Psychiatric: no appropriate mood/affect, cooperative - Neurologic Neurologic: CNII-XII intact, moves all extremities Results - Labs CBC & Chem 7: 09/03/18 12:57 09/04/18 06:00 Labs: Laboratory Last Values WBC 3.6 K/mm3 (4.5-11.0) L 09/03/18 12:57 RBC 3.32 M/mm3 (3.65-5.03) L 09/03/18 12:57 Hgb 10.0 gm/dl (10.1-14.3) L 09/03/18 12:57 Hct 29.9 % (30.3-42.9) L 09/03/18 12:57 MCV 90 fl (79-97) 09/03/18 12:57 MCH 30 pg (28-32) 09/03/18 12:57 MCHC 34 % (30-34) 09/03/18 12:57 RDW 16.2 % (13.2-15.2) H 09/03/18 12:57 Plt Count 286 K/mm3 (140-440) 09/03/18 12:57 Lymph % (Auto) 32.4 % (13.4-35.0) 09/03/18 12:57 [place] % (Auto) 10.2 % (0.0-7.3) H 09/03/18 12:57 Eos % (Auto) 0.6 % (0.0-4.3) 09/03/18 12:57 Baso % (Auto) 0.3 % (0.0-1.8) 09/03/18 12:57 Lymph # 1.2 K/mm3 (1.2-5.4) 09/03/18 12:57 [place] # 0.4 K/mm3 (0.0-0.8) 09/03/18 12:57 Eos # 0.0 K/mm3 (0.0-0.4) 09/03/18 12:57 Baso # 0.0 K/mm3 (0.0-0.1) 09/03/18 12:57 Seg Neutrophils % 56.5 % (40.0-70.0) 09/03/18 12:57 Seg Neutrophils # 2.0 K/mm3 (1.8-7.7) 09/03/18 12:57 PT 13.2 Sec. (12.2-14.9) 09/03/18 13:11 INR 0.95 (0.87-1.13) 09/03/18 13:11 APTT 21.0 Sec. (24.2-36.6) L 09/03/18 13:11 Sodium 133 mmol/L (137-145) L 09/04/18 06:00 Potassium 4.5 mmol/L (3.6-5.0) 09/04/18 06:00 Chloride 96.1 mmol/L (98-107) L 09/04/18 06:00 Carbon Dioxide 22 mmol/L (22-30) 09/04/18 06:00 Anion Gap 19 mmol/L 09/04/18 06:00 BUN 14 mg/dL (7-17) 09/04/18 06:00 Creatinine 1.2 mg/dL (0.7-1.2) 09/04/18 06:00 Estimated GFR 48 ml/min 09/04/18 06:00 BUN/Creatinine Ratio 12 % 09/04/18 06:00 Glucose 97 mg/dL (65-100) 09/04/18 06:00 POC Glucose 83 (70-105) 09/04/18 02:29 Calcium 8.5 mg/dL (8.4-10.2) 09/04/18 06:00 Total Bilirubin 0.60 mg/dL (0.1-1.2) 09/03/18 12:57 AST 68 units/L (5-40) H 09/03/18 12:57 ALT 22 units/L (7-56) 09/03/18 12:57 Alkaline Phosphatase 196 units/L (35-129) H 09/03/18 12:57 Ammonia 51.0 umol/L (25-60) 09/03/18 12:57 Total Creatine Kinase 369 units/L (30-135) H 09/03/18 12:57 CK-MB (CK-2) 2.3 ng/mL (0.0-4.0) 09/03/18 12:57 CK-MB (CK-2) Rel Index 0.6 (0-4) 09/03/18 12:57 Troponin T < 0.010 ng/mL (0.00-0.029) 09/03/18 12:57 Total Protein 6.8 g/dL (6.3-8.2) 09/03/18 12:57 Albumin 3.1 g/dL (3.9-5) L 09/03/18 12:57 Albumin/Globulin Ratio 0.8 % 09/03/18 12:57 TSH 8.310 mlU/mL (0.270-4.200) H 09/03/18 12:57 Free T4 0.98 ng/dL (0.76-1.46) 09/03/18 12:57 Urine Color [place] (Yellow) 09/03/18 12:55 Urine Turbidity Cloudy (Clear) 09/03/18 12:55 Urine pH 5.0 (5.0-7.0) 09/03/18 12:55 Ur Specific [place] 1.016 (1.003-1.030) 09/03/18 12:55 Urine Protein 100 mg/dl mg/dL (Negative) 09/03/18 12:55 Urine Glucose (UA) Neg mg/dL (Negative) 09/03/18 12:55 Urine Ketones Neg mg/dL (Negative) 09/03/18 12:55 Urine Blood Neg (Negative) 09/03/18 12:55 Urine Nitrite Neg (Negative) 09/03/18 12:55 Urine Bilirubin Neg (Negative) 09/03/18 12:55 Urine Urobilinogen 2.0 mg/dL (<2.0) 09/03/18 12:55 Ur Leukocyte Esterase Neg (Negative) 09/03/18 12:55 Urine WBC (Auto) 18.0 /HPF (0.0-6.0) H 09/03/18 12:55 Urine RBC (Auto) 4.0 /HPF (0.0-6.0) 09/03/18 12:55 U Epithel Cells (Auto) 3.0 /HPF (0-13.0) 09/03/18 12:55 Urine Bacteria (Auto) 3+ /HPF (Negative) 09/03/18 12:55 Hyaline Casts 9 /LPF 09/03/18 12:55 Urine Mucus Few /HPF 09/03/18 12:55 Plasma/Serum Alcohol < 0.01 % (0-0.07) 09/03/18 12:57 Active Medications - Current Medications Current Medications: Generic Name Dose Route Start Last Admin Trade Name Freq PRN Reason Stop Dose Admin Acetaminophen 650 mg 09/03/18 15:18 Tylenol PO Q4H PRN Pain MILD(1-3)/Fever >100.5/SANTOS Albuterol 2.5 mg 09/03/18 15:18 Proventil IH Q4HRT PRN Shortness Of Breath Amitriptyline HCl 50 mg 09/03/18 22:00 09/04/18 01:13 Elavil PO Not Given QHS [facility] Duloxetine HCl 30 mg 09/04/18 10:00 09/04/18 11:21 Cymbalta PO Not Given DAILY KARI Heparin Sodium (Porcine) 5,000 unit 09/03/18 22:00 09/04/18 11:35 Heparin SUB-Q 5,000 unit Q12HR KARI Administration Sodium Chloride 1,000 mls @ 42 mls/hr 09/03/18 16:00 09/04/18 15:38 Nacl 0.45% 1000 Ml IV 42 mls/hr DIRECT KARI Administration Ceftriaxone Sodium 1 gm in 50 mls @ 100 mls/hr 09/04/18 10:00 09/04/18 11:17 Rocephin/Ns 1 Gm/50 Ml IV 100 mls/hr Q24HR KARI Administration Protocol Levetiracetam 500 mg 09/03/18 22:00 09/04/18 11:22 Keppra PO Not Given BID [facility] Levothyroxine Sodium 100 mcg 09/04/18 10:00 09/04/18 11:28 Synthroid PO Not Given QAM [facility] Loperamide HCl 2 mg 09/04/18 10:00 09/04/18 11:22 Imodium PO Not Given DAILY [facility] Lorazepam 1 mg 09/03/18 16:19 Ativan IV Q4H PRN Agitation Morphine Sulfate 30 mg 09/03/18 22:00 09/04/18 11:22 Ms Contin Er PO Not Given BID [facility] Morphine Sulfate 4 mg 09/03/18 16:20 09/04/18 15:44 Morphine IV 4 mg Q3H PRN Administration Pain , Severe (7-10) Ondansetron HCl 4 mg 09/03/18 15:18 09/04/18 16:34 Zofran IV 4 mg Q8H PRN Administration Nausea And Vomiting Prochlorperazine Maleate 10 mg 09/03/18 18:00 09/04/18 17:29 Compazine PO Not Given Q6HR KARI Sodium Chloride 10 ml 09/03/18 22:00 09/04/18 11:41 Sodium Chloride Flush Syringe 10 Ml IV 10 ml BID KARI Administration Sodium Chloride 10 ml 09/03/18 15:18 Sodium Chloride Flush Syringe 10 Ml IV PRN PRN LINE FLUSH Valsartan 80 mg 09/03/18 22:00 09/04/18 11:21 Diovan PO Not Given QDAY KARI
[2018-09-04] MEDS: PROVENTIL IH PRN (22:06)
[2018-09-05] MEDS: ZOFRAN IV PRN ×3 (00:19→22:35)
[2018-09-05] MEDS: MORPHINE IV PRN ×3 (01:49→22:23)
[2018-09-05] MEDS: ELAVIL PO SCH ×2 (04:32→21:38)
[2018-09-05] MEDS: COMPAZINE PO SCH ×4 (04:33→21:38)
[2018-09-05] MEDS: KEPPRA PO SCH ×3 (04:35→21:38)
[2018-09-05] MEDS: SODIUM CHLORIDE FLUSH SYRINGE 10 ML IV SCH ×3 (07:51→23:24)
[2018-09-05] MEDS: ROCEPHIN/NS 1 GM/50 ML 1 GM/50 ML BAG IV SCH (09:50)
[2018-09-05] MEDS: IMODIUM PO SCH (10:00)
[2018-09-05] MEDS: DIOVAN PO SCH (10:00)
[2018-09-05] MEDS: CYMBALTA PO SCH (10:00)
[2018-09-05] MEDS: SYNTHROID PO SCH (10:00)
[2018-09-05] MEDS: MS CONTIN ER PO SCH ×2 (10:00→21:38)
[2018-09-05] MEDS: ATIVAN IV PRN ×2 (10:42→17:10)
[2018-09-05] MEDS: HEPARIN SUB-Q SCH ×2 (10:42→22:23)
--- NOTE | 2018-09-05 11:02 | Progress Note ---
Assessment and Plan Assessment and plan: --Metabolic encephalopathy; multifactorial Metastatic lung cancer. Severe malnutrition Supportive care --Swallowing evaluation/speech therapy consult Unable to do evaluation as patient was encephalopathy,, not cooperative Reevaluate tomorrow, if cannot be done, start Dobbhoff feeds --Metastatic lung cancer; Oxygen IV fluids and pain control, supportive care Patient is from hospice, reconsult hospice --Acute kidney injury; secondary to ATN Significant improvement, a wire nephrotoxins, gentle hydration --Hyponatremia; present on admission, mild improvement Closely monitor electrolytes --Hypothyroidism; continue Synthroid --History of seizures; seizure precautions, antiepileptic medications --DVT prophylaxis; SCDs, heparin --CODE STATUS discussed in detail with the son, he reports that patient is DNR --DO NOT RESUSCITATE status --Hospice consult, for possible inpatient versus at home hospice Versus placement Closely monitor the patient and adjust management as needed History Interval history: Patient seen and examined medical records reviewed No new events reported by nursing staff Chronically tense critically looking Son is at the bedside Vital signs noted Hospitalist Physical - Constitutional Vitals: Temp Pulse Resp BP Pulse Ox 99.1 F 102 H 16 136/88 97 09/05/18 05:03 09/05/18 05:03 09/05/18 05:17 09/05/18 05:03 09/05/18 05:03 General appearance: Present: mild distress, cachectic, disheveled - EENT Eyes: Present: PERRL, EOM intact - Neck Neck: Present: supple, normal ROM - Respiratory Respiratory effort: normal Respiratory: bilateral: diminished, rales, negative: rhonchi, wheezing - Cardiovascular Rhythm: regular Heart Sounds: Present: S1 & S2 - Extremities Extremities: no ischemia, No edema - Abdominal General gastrointestinal: soft, non-tender, non-distended, normal bowel sounds - Integumentary Integumentary: Present: clear, warm - Psychiatric Psychiatric: appropriate mood/affect, cooperative - Neurologic Neurologic: CNII-XII intact, moves all extremities Results - Labs CBC & Chem 7: 09/03/18 12:57 09/04/18 06:00 Labs: Laboratory Last Values WBC 3.6 K/mm3 (4.5-11.0) L 09/03/18 12:57 RBC 3.32 M/mm3 (3.65-5.03) L 09/03/18 12:57 Hgb 10.0 gm/dl (10.1-14.3) L 09/03/18 12:57 Hct 29.9 % (30.3-42.9) L 09/03/18 12:57 MCV 90 fl (79-97) 09/03/18 12:57 MCH 30 pg (28-32) 09/03/18 12:57 MCHC 34 % (30-34) 09/03/18 12:57 RDW 16.2 % (13.2-15.2) H 09/03/18 12:57 Plt Count 286 K/mm3 (140-440) 09/03/18 12:57 Lymph % (Auto) 32.4 % (13.4-35.0) 09/03/18 12:57 [place] % (Auto) 10.2 % (0.0-7.3) H 09/03/18 12:57 Eos % (Auto) 0.6 % (0.0-4.3) 09/03/18 12:57 Baso % (Auto) 0.3 % (0.0-1.8) 09/03/18 12:57 Lymph # 1.2 K/mm3 (1.2-5.4) 09/03/18 12:57 Tate # 0.4 K/mm3 (0.0-0.8) 09/03/18 12:57 Eos # 0.0 K/mm3 (0.0-0.4) 09/03/18 12:57 Baso # 0.0 K/mm3 (0.0-0.1) 09/03/18 12:57 Seg Neutrophils % 56.5 % (40.0-70.0) 09/03/18 12:57 Seg Neutrophils # 2.0 K/mm3 (1.8-7.7) 09/03/18 12:57 PT 13.2 Sec. (12.2-14.9) 09/03/18 13:11 INR 0.95 (0.87-1.13) 09/03/18 13:11 APTT 21.0 Sec. (24.2-36.6) L 09/03/18 13:11 Sodium 133 mmol/L (137-145) L 09/04/18 06:00 Potassium 4.5 mmol/L (3.6-5.0) 09/04/18 06:00 Chloride 96.1 mmol/L (98-107) L 09/04/18 06:00 Carbon Dioxide 22 mmol/L (22-30) 09/04/18 06:00 Anion Gap 19 mmol/L 09/04/18 06:00 BUN 14 mg/dL (7-17) 09/04/18 06:00 Creatinine 1.2 mg/dL (0.7-1.2) 09/04/18 06:00 Estimated GFR 48 ml/min 09/04/18 06:00 BUN/Creatinine Ratio 12 % 09/04/18 06:00 Glucose 97 mg/dL (65-100) 09/04/18 06:00 POC Glucose 83 (70-105) 09/04/18 02:29 Calcium 8.5 mg/dL (8.4-10.2) 09/04/18 06:00 Total Bilirubin 0.60 mg/dL (0.1-1.2) 09/03/18 12:57 AST 68 units/L (5-40) H 09/03/18 12:57 ALT 22 units/L (7-56) 09/03/18 12:57 Alkaline Phosphatase 196 units/L (35-129) H 09/03/18 12:57 Ammonia 51.0 umol/L (25-60) 09/03/18 12:57 Total Creatine Kinase 369 units/L (30-135) H 09/03/18 12:57 CK-MB (CK-2) 2.3 ng/mL (0.0-4.0) 09/03/18 12:57 CK-MB (CK-2) Rel Index 0.6 (0-4) 09/03/18 12:57 Troponin T < 0.010 ng/mL (0.00-0.029) 09/03/18 12:57 Total Protein 6.8 g/dL (6.3-8.2) 09/03/18 12:57 Albumin 3.1 g/dL (3.9-5) L 09/03/18 12:57 Albumin/Globulin Ratio 0.8 % 09/03/18 12:57 TSH 8.310 mlU/mL (0.270-4.200) H 09/03/18 12:57 Free T4 0.98 ng/dL (0.76-1.46) 09/03/18 12:57 Urine Color Isela (Yellow) 09/03/18 12:55 Urine Turbidity Cloudy (Clear) 09/03/18 12:55 Urine pH 5.0 (5.0-7.0) 09/03/18 12:55 Ur Specific [place] 1.016 (1.003-1.030) 09/03/18 12:55 Urine Protein 100 mg/dl mg/dL (Negative) 09/03/18 12:55 Urine Glucose (UA) Neg mg/dL (Negative) 09/03/18 12:55 Urine Ketones Neg mg/dL (Negative) 09/03/18 12:55 Urine Blood Neg (Negative) 09/03/18 12:55 Urine Nitrite Neg (Negative) 09/03/18 12:55 Urine Bilirubin Neg (Negative) 09/03/18 12:55 Urine Urobilinogen 2.0 mg/dL (<2.0) 09/03/18 12:55 Ur Leukocyte Esterase Neg (Negative) 09/03/18 12:55 Urine WBC (Auto) 18.0 /HPF (0.0-6.0) H 09/03/18 12:55 Urine RBC (Auto) 4.0 /HPF (0.0-6.0) 09/03/18 12:55 U Epithel Cells (Auto) 3.0 /HPF (0-13.0) 09/03/18 12:55 Urine Bacteria (Auto) 3+ /HPF (Negative) 09/03/18 12:55 Hyaline Casts 9 /LPF 09/03/18 12:55 Urine Mucus Few /HPF 09/03/18 12:55 Plasma/Serum Alcohol < 0.01 % (0-0.07) 09/03/18 12:57 Active Medications - Current Medications Current Medications: Generic Name Dose Route Start Last Admin Trade Name Freq PRN Reason Stop Dose Admin Acetaminophen 650 mg 09/03/18 15:18 Tylenol PO Q4H PRN Pain MILD(1-3)/Fever >100.5/SANTOS Albuterol 2.5 mg 09/03/18 15:18 09/04/18 22:06 Proventil IH 2.5 mg Q4HRT PRN Administration Shortness Of Breath Amitriptyline HCl 50 mg 09/03/18 22:00 09/05/18 04:32 Elavil PO Not Given QHS [facility] Duloxetine HCl 30 mg 09/04/18 10:00 09/04/18 11:21 Cymbalta PO Not Given DAILY [facility] Heparin Sodium (Porcine) 5,000 unit 09/03/18 22:00 09/05/18 10:42 Heparin SUB-Q 5,000 unit Q12HR KARI Administration Sodium Chloride 1,000 mls @ 42 mls/hr 09/03/18 16:00 09/04/18 15:38 Nacl 0.45% 1000 Ml IV 42 mls/hr DIRECT KARI Administration Ceftriaxone Sodium 1 gm in 50 mls @ 100 mls/hr 09/04/18 10:00 09/05/18 09:50 Rocephin/Ns 1 Gm/50 Ml IV 100 mls/hr Q24HR KARI Administration Protocol Levetiracetam 500 mg 09/03/18 22:00 09/05/18 04:35 Keppra PO Not Given BID [facility] Levothyroxine Sodium 100 mcg 09/04/18 10:00 09/04/18 11:28 Synthroid PO Not Given QAM [facility] Loperamide HCl 2 mg 09/04/18 10:00 09/04/18 11:22 Imodium PO Not Given DAILY [facility] Lorazepam 1 mg 09/03/18 16:19 09/05/18 10:42 Ativan IV 1 mg Q4H PRN Administration Agitation Morphine Sulfate 30 mg 09/03/18 22:00 09/04/18 22:50 Ms Contin Er PO Not Given BID [facility] Morphine Sulfate 4 mg 09/03/18 16:20 09/05/18 04:47 Morphine IV 4 mg Q3H PRN Administration Pain , Severe (7-10) Ondansetron HCl 4 mg 09/03/18 15:18 09/05/18 09:50 Zofran IV 4 mg Q8H PRN Administration Nausea And Vomiting Prochlorperazine Maleate 10 mg 09/03/18 18:00 09/05/18 07:52 Compazine PO Not Given Q6HR [facility] Sodium Chloride 10 ml 09/03/18 22:00 09/05/18 07:51 Sodium Chloride Flush Syringe 10 Ml IV Not Given BID KARI Sodium Chloride 10 ml 09/03/18 15:18 Sodium Chloride Flush Syringe 10 Ml IV PRN PRN LINE FLUSH Valsartan 80 mg 09/03/18 22:00 09/04/18 11:21 Diovan PO Not Given QDAY KARI
[2018-09-05] MEDS ORDERED: SIMPLE SYRUP FEEDTUBE PRN ×4 (11:19→12:21)
[2018-09-05] MEDS ORDERED: PANCREAZE DR 10,500 UNIT FEEDTUBE PRN ×2 (11:19→12:21)
[2018-09-05] MEDS ORDERED: SODIUM BICARBONATE FEEDTUBE PRN ×2 (11:19→12:21)
[2018-09-05] MEDS: NACL 0.45% 1000 ML 1,000 ML IV SCH (14:56)
--- NOTE | 2018-09-05 16:07 | Magnetic Resonance Report ---
PROCEDURE: MR BRAIN WO CON TECHNIQUE: Multiplanar multisequence noncontrast MR images of the brain were performed. No IV contra st was administered due to low GFR HISTORY: brain lesion on CT brain history of lung cancer COMPARISONS: CT brain 09/03/2018 demonstrating FINDINGS: Exam is motion degraded despite multiple attempts at the same sequences. There is a 1 cm focus of right parietal cortical restricted diffusion, a 9 mm focus of left occipital restricted diffusion, and right lateral orbital/globe 7 mm focus of restricted diffusion. Gradient echo T2-weighted images demonstrate low signal intensity rim around both of these lesions. T he right parietal lesion with the hemosiderin rim measures 1.2 x 1.3 cm. The left occipital lesion me asures 1.1 x 0.7 cm. On the sagittal reconstructed images, the right parietal lesion measures up to 1.4 cm craniocaudal length in the left posterior parietal lesion measures 1.1 cm. There is an additional right frontal cortical lesion with low signal intensity rim measuring 0.7 x 0. 8 cm. There is an additional left posterior parietal parasagittal 4 mm lesion with low signal intensi ty rim. Axial T2-weighted images demonstrate right lateral globe 8 mm low T2 signal intensity with bright FLA IR signal intensity. This is an ovoid shaped lesion. IMPRESSION: Findings highly suspicious for metastatic disease involving the right parietal lobe, left occipital l obe, parasagittal left parietal lobe, and right frontal lobe. There is also a lesion in the right lat eral globe. Consider metastases and melanoma. No significant edema. Exam is limited due to motion deg radation and lack of IV contrast. This document is electronically signed by Radha Mcdonald MD., September 05 2018 04:05:12 PM ET
[2018-09-05] MEDS: TYLENOL PO PRN (17:22)
[2018-09-05] MEDS ORDERED: DUONEB *Not for PRN Use IH SCH (20:00)
[2018-09-05] MEDS: PROVENTIL IH SCH (20:42)
[2018-09-06] MEDS: ATIVAN IV PRN ×2 (00:26→05:48)
[2018-09-06] MEDS: COMPAZINE PO SCH ×4 (00:30→17:11)
[2018-09-06] MEDS: MORPHINE IV PRN (02:22)
[2018-09-06 06:44] LABS: Calcium 8.6 mg/dL (8.4-10.2)
[2018-09-06] MEDS: PROVENTIL IH SCH ×3 (08:31→20:15)
[2018-09-06] MEDS ORDERED: K-DUR PO NR (08:35)
[2018-09-06] MEDS ORDERED: MAGNESIUM SULFATE 2GM/50ML 2 GM/50 ML BAG IV ONE (10:00)
[2018-09-06] MEDS: IMODIUM PO SCH (10:32)
[2018-09-06] MEDS: HEPARIN SUB-Q SCH ×2 (10:33→22:01)
[2018-09-06] MEDS: KEPPRA PO SCH ×2 (10:33→21:00)
--- NOTE | 2018-09-06 10:33 | Discharge Summary ---
Providers - Providers Date of Admission: 09/03/18 15:18 Date of discharge: 09/06/18 Attending physician: CARMEN HICKMAN 09/03/18 16:22 Consult to Case Management [CONS] Routine Services Needed at Discharge: Other Notified:: tejas Additional Physician Instructions: Discharge Planning. 09/04/18 10:58 Speech Therapy Evaluation and Treat [CONS] Routine Reason For Exam: DYSPHAGIA 09/05/18 11:19 Consult to Dietitian/Nutrition [CONS] Routine Physician Instructions: Assess nutrtn needs, initiate, modify, manage TF Reason For Exam: Reason for Consult: Write/Manage Tube Feeding Reason for Consult: Write/Manage Tube Feeding Primary care physician: YARN PACKER Hospitalization Condition: Fair Disposition: DC-30 STILL A PATIENT Exam - Constitutional Vitals: Temp Pulse Resp BP Pulse Ox 100.4 F H 91 H 18 121/89 99 09/05/18 12:18 09/06/18 08:40 09/06/18 08:40 09/05/18 12:18 09/06/18 08:31 Plan Follow up with: PRIMARY MD GERI [Primary Care Provider] - 3-5 Days
[2018-09-06] MEDS: CYMBALTA PO SCH (10:34)
[2018-09-06] MEDS: DIOVAN PO SCH (10:34)
[2018-09-06] MEDS: ROCEPHIN/NS 1 GM/50 ML 1 GM/50 ML BAG IV SCH (10:34)
[2018-09-06] MEDS: SYNTHROID PO SCH (10:34)
[2018-09-06] MEDS: SODIUM CHLORIDE FLUSH SYRINGE 10 ML IV SCH ×2 (10:35→22:09)
[2018-09-06] MEDS: MS CONTIN ER PO SCH ×2 (13:19→22:08)
--- NOTE | 2018-09-06 19:08 | Progress Note ---
Assessment and Plan Assessment and plan: --Metabolic encephalopathy; multifactorial Metastatic lung cancer. Severe malnutrition Patient is more alert and awake today --Swallowing evaluation/speech therapy ; able to tolerate oral diet Continue soft diet advance as tolerated IV fluids --Metastatic lung cancer; Oxygen IV fluids and pain control, supportive care Patient is from hospice, reconsult hospice --Acute kidney injury; secondary to ATN Significant improvement, a wire nephrotoxins, gentle hydration --Hyponatremia; present on admission, mild improvement Closely monitor electrolytes --Hypothyroidism; continue Synthroid --History of seizures; seizure precautions, antiepileptic medications --DVT prophylaxis; SCDs, heparin --CODE STATUS discussed in detail with the son, he reports that patient is DNR --DO NOT RESUSCITATE status --Hospice consult, for possible inpatient versus at home hospice Versus placement Possible discharge to inpatient hospice versus home with hospice Plan of care discussed with the patient's son, nurse and case management History Interval history: Patient seen and examined medical records reviewed Patient is more alert today this morning to simple questions Tolerating oral diet Vital signs reviewed Hospitalist Physical - Constitutional Vitals: Temp Pulse Resp BP Pulse Ox 100.4 F H 97 H 18 122/74 99 09/05/18 12:18 09/06/18 14:33 09/06/18 14:33 09/06/18 10:34 09/06/18 08:31 General appearance: Present: mild distress, cachectic, disheveled - EENT Eyes: Present: PERRL, EOM intact - Neck Neck: Present: supple, normal ROM - Respiratory Respiratory effort: normal Respiratory: bilateral: diminished, rhonchi, negative: rales, wheezing - Cardiovascular Rhythm: regular Heart Sounds: Present: S1 & S2 - Extremities Extremities: no ischemia Extremity abnormal: edema - Abdominal General gastrointestinal: soft, non-tender, non-distended, normal bowel sounds - Integumentary Integumentary: Present: clear, warm - Psychiatric Psychiatric: appropriate mood/affect, other (minimally communicative) - Neurologic Neurologic: other (minimally communicative) Results - Labs CBC & Chem 7: 09/03/18 12:57 09/06/18 05:58 Labs: Laboratory Last Values WBC 3.6 K/mm3 (4.5-11.0) L 09/03/18 12:57 RBC 3.32 M/mm3 (3.65-5.03) L 09/03/18 12:57 Hgb 10.0 gm/dl (10.1-14.3) L 09/03/18 12:57 Hct 29.9 % (30.3-42.9) L 09/03/18 12:57 MCV 90 fl (79-97) 09/03/18 12:57 MCH 30 pg (28-32) 09/03/18 12:57 MCHC 34 % (30-34) 09/03/18 12:57 RDW 16.2 % (13.2-15.2) H 09/03/18 12:57 Plt Count 286 K/mm3 (140-440) 09/03/18 12:57 Lymph % (Auto) 32.4 % (13.4-35.0) 09/03/18 12:57 [place] % (Auto) 10.2 % (0.0-7.3) H 09/03/18 12:57 Eos % (Auto) 0.6 % (0.0-4.3) 09/03/18 12:57 Baso % (Auto) 0.3 % (0.0-1.8) 09/03/18 12:57 Lymph # 1.2 K/mm3 (1.2-5.4) 09/03/18 12:57 [place] # 0.4 K/mm3 (0.0-0.8) 09/03/18 12:57 Eos # 0.0 K/mm3 (0.0-0.4) 09/03/18 12:57 Baso # 0.0 K/mm3 (0.0-0.1) 09/03/18 12:57 Seg Neutrophils % 56.5 % (40.0-70.0) 09/03/18 12:57 Seg Neutrophils # 2.0 K/mm3 (1.8-7.7) 09/03/18 12:57 PT 13.2 Sec. (12.2-14.9) 09/03/18 13:11 INR 0.95 (0.87-1.13) 09/03/18 13:11 APTT 21.0 Sec. (24.2-36.6) L 09/03/18 13:11 Sodium 130 mmol/L (137-145) L 09/06/18 05:58 Potassium 3.5 mmol/L (3.6-5.0) L D 09/06/18 05:58 Chloride 91.1 mmol/L (98-107) L 09/06/18 05:58 Carbon Dioxide 23 mmol/L (22-30) 09/06/18 05:58 Anion Gap 19 mmol/L 09/06/18 05:58 BUN 8 mg/dL (7-17) 09/06/18 05:58 Creatinine 1.1 mg/dL (0.7-1.2) 09/06/18 05:58 Estimated GFR 53 ml/min 09/06/18 05:58 BUN/Creatinine Ratio 7 % 09/06/18 05:58 Glucose 114 mg/dL (65-100) H 09/06/18 05:58 POC Glucose 83 (70-105) 09/04/18 02:29 Calcium 8.6 mg/dL (8.4-10.2) 09/06/18 05:58 Phosphorus 2.50 mg/dL (2.5-4.5) 09/06/18 05:58 Magnesium 1.60 mg/dL (1.7-2.3) L 09/06/18 05:58 Total Bilirubin 0.60 mg/dL (0.1-1.2) 09/03/18 12:57 AST 68 units/L (5-40) H 09/03/18 12:57 ALT 22 units/L (7-56) 09/03/18 12:57 Alkaline Phosphatase 196 units/L (35-129) H 09/03/18 12:57 Ammonia 51.0 umol/L (25-60) 09/03/18 12:57 Total Creatine Kinase 369 units/L (30-135) H 09/03/18 12:57 CK-MB (CK-2) 2.3 ng/mL (0.0-4.0) 09/03/18 12:57 CK-MB (CK-2) Rel Index 0.6 (0-4) 09/03/18 12:57 Troponin T < 0.010 ng/mL (0.00-0.029) 09/03/18 12:57 Total Protein 6.8 g/dL (6.3-8.2) 09/03/18 12:57 Albumin 3.1 g/dL (3.9-5) L 09/03/18 12:57 Albumin/Globulin Ratio 0.8 % 09/03/18 12:57 TSH 8.310 mlU/mL (0.270-4.200) H 09/03/18 12:57 Free T4 0.98 ng/dL (0.76-1.46) 09/03/18 12:57 Urine Color Isela (Yellow) 09/03/18 12:55 Urine Turbidity Cloudy (Clear) 09/03/18 12:55 Urine pH 5.0 (5.0-7.0) 09/03/18 12:55 Ur Specific [place] 1.016 (1.003-1.030) 09/03/18 12:55 Urine Protein 100 mg/dl mg/dL (Negative) 09/03/18 12:55 Urine Glucose (UA) Neg mg/dL (Negative) 09/03/18 12:55 Urine Ketones Neg mg/dL (Negative) 09/03/18 12:55 Urine Blood Neg (Negative) 09/03/18 12:55 Urine Nitrite Neg (Negative) 09/03/18 12:55 Urine Bilirubin Neg (Negative) 09/03/18 12:55 Urine Urobilinogen 2.0 mg/dL (<2.0) 09/03/18 12:55 Ur Leukocyte Esterase Neg (Negative) 09/03/18 12:55 Urine WBC (Auto) 18.0 /HPF (0.0-6.0) H 09/03/18 12:55 Urine RBC (Auto) 4.0 /HPF (0.0-6.0) 09/03/18 12:55 U Epithel Cells (Auto) 3.0 /HPF (0-13.0) 09/03/18 12:55 Urine Bacteria (Auto) 3+ /HPF (Negative) 09/03/18 12:55 Hyaline Casts 9 /LPF 09/03/18 12:55 Urine Mucus Few /HPF 09/03/18 12:55 Plasma/Serum Alcohol < 0.01 % (0-0.07) 09/03/18 12:57 Active Medications - Current Medications Current Medications: Generic Name Dose Route Start Last Admin Trade Name Freq PRN Reason Stop Dose Admin Acetaminophen 650 mg 09/03/18 15:18 09/05/18 17:22 Tylenol PO 650 mg Q4H PRN Administration Pain MILD(1-3)/Fever >100.5/SANTOS Albuterol 2.5 mg 09/03/18 15:18 09/04/18 22:06 Proventil IH 2.5 mg Q4HRT PRN Administration Shortness Of Breath Albuterol 2.5 mg 09/05/18 20:00 09/06/18 14:25 Proventil IH 2.5 mg TIDRT KARI Administration Amitriptyline HCl 50 mg 09/03/18 22:00 09/05/18 21:38 Elavil PO Not Given QHS KARI Lipase/Protease/Amylase 1 each 09/05/18 11:[address] 10,500 Unit FEEDTUBE PRN PRN For Clogged Feeding Tube Duloxetine HCl 30 mg 09/04/18 10:00 09/06/18 10:34 Cymbalta PO 30 mg DAILY KARI Administration Heparin Sodium (Porcine) 5,000 unit 09/03/18 22:00 09/06/18 10:33 Heparin SUB-Q 5,000 unit Q12HR KARI Administration Sodium Chloride 1,000 mls @ 42 mls/hr 09/03/18 16:00 09/05/18 14:56 Nacl 0.45% 1000 Ml IV 42 mls/hr DIRECT KARI Administration Ceftriaxone Sodium 1 gm in 50 mls @ 100 mls/hr 09/04/18 10:00 09/06/18 10:34 Rocephin/Ns 1 Gm/50 Ml IV 100 mls/hr Q24HR KARI Administration Protocol Levetiracetam 500 mg 09/03/18 22:00 09/06/18 10:33 Keppra PO 500 mg BID KARI Administration Levothyroxine Sodium 100 mcg 09/04/18 10:00 09/06/18 10:34 Synthroid PO 100 mcg QAM KARI Administration Loperamide HCl 2 mg 09/04/18 10:00 09/06/18 10:32 Imodium PO 2 mg DAILY KARI Administration Lorazepam 1 mg 09/03/18 16:19 09/06/18 05:48 Ativan IV 1 mg Q4H PRN Administration Agitation Morphine Sulfate 30 mg 09/03/18 22:00 09/06/18 13:19 Ms Contin Er PO 30 mg BID KARI Administration Morphine Sulfate 4 mg 09/03/18 16:20 09/06/18 02:22 Morphine IV 4 mg Q3H PRN Administration Pain , Severe (7-10) Ondansetron HCl 4 mg 09/03/18 15:18 09/05/18 22:35 Zofran IV 4 mg Q8H PRN Administration Nausea And Vomiting Prochlorperazine Maleate 10 mg 09/03/18 18:00 09/06/18 17:11 Compazine PO 10 mg Q6HR KARI Administration Simple Syrup 15 ml 09/05/18 11:19 Simple Syrup FEEDTUBE PRN PRN Hypoglycemia Simple Syrup 30 ml 09/05/18 11:19 Simple Syrup FEEDTUBE PRN PRN Hypoglycemia Sodium Bicarbonate 325 mg 09/05/18 11:19 Sodium Bicarbonate FEEDTUBE PRN PRN For Clogged Feeding Tube Sodium Chloride 10 ml 09/03/18 22:00 09/06/18 10:35 Sodium Chloride Flush Syringe 10 Ml IV 10 ml BID KARI Administration Sodium Chloride 10 ml 09/03/18 15:18 Sodium Chloride Flush Syringe 10 Ml IV PRN PRN LINE FLUSH Valsartan 80 mg 09/03/18 22:00 09/06/18 10:34 Diovan PO 80 mg QDAY KARI Administration Nutrition/Malnutrition Assess - Dietary Evaluation Nutrition/Malnutrition Findings: Nutrition Notes Start: 09/05/18 12: 15 Freq: Status: Active Protocol: Document 09/05/18 12:15 ROMMEL (Rec: 09/05/18 12:20 ROMMEL [email or web address]) Nutrition Notes Need for Assessment generated from: MD Order Initial or Follow up Assessment Current Diagnosis COPD,Hypertension,Stroke Other Pertinent Diagnosis Metastatic lung CA, Encephalopathy, UTI, SLE, Seizure D/O Current Diet NPO Labs/Tests Reviewed Pertinent Medications Imodium, MS Contin Height 5 ft 7 in Weight 67.9 kg [place] Body Weight (kg) 61.36 BMI 23.4 Weight Status Appropriate Subjective/Other Information RD consulted for TF. Pt is homeless. Burn Absent Trauma Absent #1 Nutrition Diagnosis Inadequate oral intake Etiology metastatic lung CA, encephalopathy As Evidenced by Signs and Symptoms pt NPO Is patient on ventilator? No Is Patient Ambulatory and/or Out of Bed No REE-([facility]. Jenc-confined to bed) [phone] Calculation Used for Recommendations [facility] Additional Notes Pro needs 1-1.2g/k-81g/ day Fluid needs 1ml/kcal Nutrition Intervention Nutrition Support: Jevity 1.2 at 55ml/hr with 85ml water flush q4h. Kcal 1,584 Protein (gm) 73 Fluid (mL) 1,065 Fiber (gm) 24 Goal #1 TF tolerance Goal #2 TF to meet 90-100% energy and pro needs Anticipated Discharge Needs: Continue TF if necessary Follow-Up By: 09/07/18 Additional Comments F/U: new TF
[2018-09-06] MEDS: ELAVIL PO SCH (20:59)
[2018-09-07] MEDS: COMPAZINE PO SCH ×5 (01:48→23:08)
[2018-09-07] MEDS: PROVENTIL IH SCH ×3 (08:38→20:38)
[2018-09-07] MEDS: IMODIUM PO SCH (10:08)
[2018-09-07] MEDS: CYMBALTA PO SCH (10:08)
[2018-09-07] MEDS: MS CONTIN ER PO SCH ×2 (10:12→23:07)
[2018-09-07] MEDS: DIOVAN PO SCH (10:12)
[2018-09-07] MEDS: SYNTHROID PO SCH (10:12)
[2018-09-07] MEDS: KEPPRA PO SCH ×2 (10:14→23:08)
[2018-09-07] MEDS: HEPARIN SUB-Q SCH ×2 (10:14→23:12)
[2018-09-07] MEDS: SODIUM CHLORIDE FLUSH SYRINGE 10 ML IV SCH ×2 (10:15→23:09)
[2018-09-07] MEDS: ROCEPHIN/NS 1 GM/50 ML 1 GM/50 ML BAG IV SCH (10:15)
[2018-09-07] MEDS: TYLENOL PO PRN (16:36)
[2018-09-07] MEDS: ATIVAN IV PRN (16:37)
--- NOTE | 2018-09-07 18:56 | Progress Note ---
Assessment and Plan Assessment and plan: --Metabolic encephalopathy; multifactorial Metastatic lung cancer. Severe malnutrition Patient is more alert and awake today --Swallowing evaluation/speech therapy ; able to tolerate oral diet Advance diet as tolerated --Metastatic lung cancer; Oxygen IV fluids and pain control, supportive care Patient is from hospice, reconsult hospice --Acute kidney injury; secondary to ATN; resolved avoid nephrotoxins, gentle hydration --Hyponatremia; present on admission, mild improvement --Hypokalemia; managed with potassium chloride --Hypothyroidism; continue Synthroid --History of seizures; seizure precautions, antiepileptic medications --DVT prophylaxis; SCDs, heparin --CODE STATUS discussed in detail with the son, he reports that patient is DNR --DO NOT RESUSCITATE status --Hospice consult, for possible inpatient versus at home hospice Versus placement Possible discharge to inpatient hospice versus home with hospice Plan of care discussed with the patient's son, nurse and case management History Interval history: Patient seen and evaluated this morning, medical records reviewed Hospice digital media representative was evaluating the patient ,for possible inpatient hospice admission Patient feels slightly better, more alert awake and verbal. communicating appropriately Vital signs noted Hospitalist Physical - Constitutional Vitals: Temp Pulse Resp BP Pulse Ox 97.9 F 107 H 18 110/81 99 09/07/18 17:05 09/07/18 17:05 09/07/18 17:05 09/07/18 17:05 09/07/18 17:05 General appearance: Present: no acute distress, cachectic, disheveled - EENT Eyes: Present: PERRL, EOM intact - Neck Neck: Present: supple, normal ROM - Respiratory Respiratory effort: normal Respiratory: bilateral: diminished, rhonchi, negative: rales, wheezing - Cardiovascular Rhythm: regular Heart Sounds: Present: S1 & S2 - Extremities Extremities: no ischemia, No edema - Abdominal General gastrointestinal: soft, non-tender, non-distended, normal bowel sounds - Integumentary Integumentary: Present: clear, warm - Psychiatric Psychiatric: appropriate mood/affect, cooperative - Neurologic Neurologic: moves all extremities Results - Labs CBC & Chem 7: 09/03/18 12:57 09/06/18 05:58 Labs: Laboratory Last Values WBC 3.6 K/mm3 (4.5-11.0) L 09/03/18 12:57 RBC 3.32 M/mm3 (3.65-5.03) L 09/03/18 12:57 Hgb 10.0 gm/dl (10.1-14.3) L 09/03/18 12:57 Hct 29.9 % (30.3-42.9) L 09/03/18 12:57 MCV 90 fl (79-97) 09/03/18 12:57 MCH 30 pg (28-32) 09/03/18 12:57 MCHC 34 % (30-34) 09/03/18 12:57 RDW 16.2 % (13.2-15.2) H 09/03/18 12:57 Plt Count 286 K/mm3 (140-440) 09/03/18 12:57 Lymph % (Auto) 32.4 % (13.4-35.0) 09/03/18 12:57 [place] % (Auto) 10.2 % (0.0-7.3) H 09/03/18 12:57 Eos % (Auto) 0.6 % (0.0-4.3) 09/03/18 12:57 Baso % (Auto) 0.3 % (0.0-1.8) 09/03/18 12:57 Lymph # 1.2 K/mm3 (1.2-5.4) 09/03/18 12:57 [place] # 0.4 K/mm3 (0.0-0.8) 09/03/18 12:57 Eos # 0.0 K/mm3 (0.0-0.4) 09/03/18 12:57 Baso # 0.0 K/mm3 (0.0-0.1) 09/03/18 12:57 Seg Neutrophils % 56.5 % (40.0-70.0) 09/03/18 12:57 Seg Neutrophils # 2.0 K/mm3 (1.8-7.7) 09/03/18 12:57 PT 13.2 Sec. (12.2-14.9) 09/03/18 13:11 INR 0.95 (0.87-1.13) 09/03/18 13:11 APTT 21.0 Sec. (24.2-36.6) L 09/03/18 13:11 Sodium 130 mmol/L (137-145) L 09/06/18 05:58 Potassium 3.5 mmol/L (3.6-5.0) L D 09/06/18 05:58 Chloride 91.1 mmol/L (98-107) L 09/06/18 05:58 Carbon Dioxide 23 mmol/L (22-30) 09/06/18 05:58 Anion Gap 19 mmol/L 09/06/18 05:58 BUN 8 mg/dL (7-17) 09/06/18 05:58 Creatinine 1.1 mg/dL (0.7-1.2) 09/06/18 05:58 Estimated GFR 53 ml/min 09/06/18 05:58 BUN/Creatinine Ratio 7 % 09/06/18 05:58 Glucose 114 mg/dL (65-100) H 09/06/18 05:58 POC Glucose 83 (70-105) 09/04/18 02:29 Calcium 8.6 mg/dL (8.4-10.2) 09/06/18 05:58 Phosphorus 2.50 mg/dL (2.5-4.5) 09/06/18 05:58 Magnesium 1.60 mg/dL (1.7-2.3) L 09/06/18 05:58 Total Bilirubin 0.60 mg/dL (0.1-1.2) 09/03/18 12:57 AST 68 units/L (5-40) H 09/03/18 12:57 ALT 22 units/L (7-56) 09/03/18 12:57 Alkaline Phosphatase 196 units/L (35-129) H 09/03/18 12:57 Ammonia 51.0 umol/L (25-60) 09/03/18 12:57 Total Creatine Kinase 369 units/L (30-135) H 09/03/18 12:57 CK-MB (CK-2) 2.3 ng/mL (0.0-4.0) 09/03/18 12:57 CK-MB (CK-2) Rel Index 0.6 (0-4) 09/03/18 12:57 Troponin T < 0.010 ng/mL (0.00-0.029) 09/03/18 12:57 Total Protein 6.8 g/dL (6.3-8.2) 09/03/18 12:57 Albumin 3.1 g/dL (3.9-5) L 09/03/18 12:57 Albumin/Globulin Ratio 0.8 % 09/03/18 12:57 TSH 8.310 mlU/mL (0.270-4.200) H 09/03/18 12:57 Free T4 0.98 ng/dL (0.76-1.46) 09/03/18 12:57 Urine Color [place] (Yellow) 09/03/18 12:55 Urine Turbidity Cloudy (Clear) 09/03/18 12:55 Urine pH 5.0 (5.0-7.0) 09/03/18 12:55 Ur Specific [place] 1.016 (1.003-1.030) 09/03/18 12:55 Urine Protein 100 mg/dl mg/dL (Negative) 09/03/18 12:55 Urine Glucose (UA) Neg mg/dL (Negative) 09/03/18 12:55 Urine Ketones Neg mg/dL (Negative) 09/03/18 12:55 Urine Blood Neg (Negative) 09/03/18 12:55 Urine Nitrite Neg (Negative) 09/03/18 12:55 Urine Bilirubin Neg (Negative) 09/03/18 12:55 Urine Urobilinogen 2.0 mg/dL (<2.0) 09/03/18 12:55 Ur Leukocyte Esterase Neg (Negative) 09/03/18 12:55 Urine WBC (Auto) 18.0 /HPF (0.0-6.0) H 09/03/18 12:55 Urine RBC (Auto) 4.0 /HPF (0.0-6.0) 09/03/18 12:55 U Epithel Cells (Auto) 3.0 /HPF (0-13.0) 09/03/18 12:55 Urine Bacteria (Auto) 3+ /HPF (Negative) 09/03/18 12:55 Hyaline Casts 9 /LPF 09/03/18 12:55 Urine Mucus Few /HPF 09/03/18 12:55 Plasma/Serum Alcohol < 0.01 % (0-0.07) 09/03/18 12:57 Active Medications - Current Medications Current Medications: Generic Name Dose Route Start Last Admin Trade Name Freq PRN Reason Stop Dose Admin Acetaminophen 650 mg 09/03/18 15:18 09/07/18 16:36 Tylenol PO 650 mg Q4H PRN Administration Pain MILD(1-3)/Fever >100.5/SANTOS Albuterol 2.5 mg 09/03/18 15:18 09/04/18 22:06 Proventil IH 2.5 mg Q4HRT PRN Administration Shortness Of Breath Albuterol 2.5 mg 09/05/18 20:00 09/07/18 13:35 Proventil IH 2.5 mg TIDRT KARI Administration Amitriptyline HCl 50 mg 09/03/18 22:00 09/06/18 20:59 Elavil PO 50 mg QHS KARI Administration Lipase/Protease/Amylase 1 each 09/05/18 11:[address] 10,500 Unit FEEDTUBE PRN PRN For Clogged Feeding Tube Duloxetine HCl 30 mg 09/04/18 10:00 09/07/18 10:08 Cymbalta PO 30 mg DAILY KARI Administration Heparin Sodium (Porcine) 5,000 unit 09/03/18 22:00 09/07/18 10:14 Heparin SUB-Q 5,000 unit Q12HR KARI Administration Sodium Chloride 1,000 mls @ 42 mls/hr 09/03/18 16:00 09/05/18 14:56 Nacl 0.45% 1000 Ml IV 42 mls/hr DIRECT KARI Administration Ceftriaxone Sodium 1 gm in 50 mls @ 100 mls/hr 09/04/18 10:00 09/07/18 10:15 Rocephin/Ns 1 Gm/50 Ml IV 100 mls/hr Q24HR KARI Administration Protocol Levetiracetam 500 mg 09/03/18 22:00 09/07/18 10:14 Keppra PO 500 mg BID KARI Administration Levothyroxine Sodium 100 mcg 09/04/18 10:00 09/07/18 10:12 Synthroid PO 100 mcg QAM KARI Administration Loperamide HCl 2 mg 09/04/18 10:00 09/07/18 10:08 Imodium PO 2 mg DAILY KARI Administration Lorazepam 1 mg 09/03/18 16:19 09/07/18 16:37 Ativan IV 1 mg Q4H PRN Administration Agitation Morphine Sulfate 30 mg 09/03/18 22:00 09/07/18 10:12 Ms Contin Er PO 30 mg BID KARI Administration Morphine Sulfate 4 mg 09/03/18 16:20 09/06/18 02:22 Morphine IV 4 mg Q3H PRN Administration Pain , Severe (7-10) Ondansetron HCl 4 mg 09/03/18 15:18 09/05/18 22:35 Zofran IV 4 mg Q8H PRN Administration Nausea And Vomiting Prochlorperazine Maleate 10 mg 09/03/18 18:00 09/07/18 17:51 Compazine PO 10 mg Q6HR KARI Administration Simple Syrup 15 ml 09/05/18 11:19 Simple Syrup FEEDTUBE PRN PRN Hypoglycemia Simple Syrup 30 ml 09/05/18 11:19 Simple Syrup FEEDTUBE PRN PRN Hypoglycemia Sodium Bicarbonate 325 mg 09/05/18 11:19 Sodium Bicarbonate FEEDTUBE PRN PRN For Clogged Feeding Tube Sodium Chloride 10 ml 09/03/18 22:00 09/07/18 10:15 Sodium Chloride Flush Syringe 10 Ml IV 10 ml BID KARI Administration Sodium Chloride 10 ml 09/03/18 15:18 Sodium Chloride Flush Syringe 10 Ml IV PRN PRN LINE FLUSH Valsartan 80 mg 09/03/18 22:00 09/07/18 10:12 Diovan PO 80 mg QDAY KARI Administration Nutrition/Malnutrition Assess - Dietary Evaluation Nutrition/Malnutrition Findings: Nutrition Notes Start: 09/05/18 12:15 Freq: Status: Active Protocol: Document 09/07/18 13:33 LM (Rec: 09/07/18 13:43 LM [id number]) Co-Sign 09/07/18 13:33 LP Nutrition Notes Initial or Follow up Reassessment Current Diagnosis COPD,Hypertension,Stroke Other Pertinent Diagnosis Metastatic lung CA, Encephalopathy, UTI, SLE, Seizure D/O Current Diet Pureed diet Labs/Tests Na 130 K 3.5 Cl 91.1 Pertinent Medications Reviewed Height 5 ft 7 in Weight 64.8 kg [place] Body Weight (kg) 61.36 BMI 22.4 Subjective/Other Information TF was not hanging in room at time of visit. Pt's diet advanced to pureed diet this afternoon. Percent of energy/protein needs met: 0%/0% Burn Absent Trauma Absent #1 Nutrition Diagnosis Inadequate oral intake As Evidenced by Signs and Symptoms pt on pureed diet Diagnosis Progress(for reassessment Improved documentation) Is patient on ventilator? No Is Patient Ambulatory and/or Out of Bed No REE-([place]-St. Jeor-confined to bed) 8346.584 Calculation Used for Recommendations [place]-St Jeor Additional Notes Pro needs: 65- 78 g (1-1.2g/kg ) Fluid needs 1ml/kcal Nutrition Intervention Change Diet Order: Continue pureed Goal #1 Tolerate pureed diet Goal #2 Meet at least 75% of energy and protein needs Anticipated Discharge Needs: Unable to determine at this time Follow-Up By: 09/08/18 Additional Comments F/U for intakes, diet tolerance
[2018-09-07] MEDS: MORPHINE IV PRN (19:43)
[2018-09-07] MEDS: ELAVIL PO SCH (23:07)
[2018-09-08] MEDS: PROVENTIL IH PRN (00:09)
[2018-09-08] MEDS: MORPHINE IV PRN (00:49)
[2018-09-08] MEDS: NACL 0.45% 1000 ML 1,000 ML IV SCH (00:55)
[2018-09-08] MEDS: COMPAZINE PO SCH ×3 (06:14→18:57)
[2018-09-08] MEDS: PROVENTIL IH SCH ×3 (09:02→20:49)
[2018-09-08] MEDS: ATIVAN IV PRN (11:33)
[2018-09-08] MEDS: CYMBALTA PO SCH (11:33)
[2018-09-08] MEDS: MS CONTIN ER PO SCH ×2 (11:34→21:17)
[2018-09-08] MEDS: IMODIUM PO SCH (11:34)
[2018-09-08] MEDS: SYNTHROID PO SCH (11:35)
[2018-09-08] MEDS: DIOVAN PO SCH (11:35)
[2018-09-08] MEDS: ROCEPHIN/NS 1 GM/50 ML 1 GM/50 ML BAG IV SCH (11:35)
[2018-09-08] MEDS: SODIUM CHLORIDE FLUSH SYRINGE 10 ML IV SCH ×2 (11:36→21:21)
[2018-09-08] MEDS: KEPPRA PO SCH ×2 (11:36→21:18)
[2018-09-08] MEDS: HEPARIN SUB-Q SCH ×2 (11:37→21:18)
--- NOTE | 2018-09-08 16:18 | Progress Note ---
Assessment and Plan Assessment and plan: --Metabolic encephalopathy; multifactorial Metastatic lung cancer. Severe malnutrition Patient is more alert and awake today --Swallowing evaluation/speech therapy ; able to tolerate oral diet Advance diet as tolerated --Metastatic lung cancer; Oxygen IV fluids and pain control, supportive care Patient is from hospice, reconsult hospice --Acute kidney injury; secondary to ATN; resolved avoid nephrotoxins, gentle hydration --Hyponatremia; present on admission, mild improvement --Hypokalemia; managed with potassium chloride --Hypothyroidism; continue Synthroid --History of seizures; seizure precautions, antiepileptic medications --DVT prophylaxis; SCDs, heparin --CODE STATUS discussed in detail with the son, he reports that patient is DNR --DO NOT RESUSCITATE status --Hospice consult, for possible inpatient versus at home hospice Versus placement Possible discharge to inpatient hospice versus home with hospice Plan of care discussed with the patient's son, nurse and case management Hospitalist Physical - Constitutional Vitals: Temp Pulse Resp BP Pulse Ox 99.7 F H 107 H 18 116/80 96 09/08/18 12:03 09/08/18 12:03 09/08/18 12:03 09/08/18 12:03 09/08/18 12:03 General appearance: Present: no acute distress, cachectic, disheveled Results - Labs CBC & Chem 7: 09/03/18 12:57 09/08/18 13:04 Labs: Laboratory Last Values WBC 3.6 K/mm3 (4.5-11.0) L 09/03/18 12:57 RBC 3.32 M/mm3 (3.65-5.03) L 09/03/18 12:57 Hgb 10.0 gm/dl (10.1-14.3) L 09/03/18 12:57 Hct 29.9 % (30.3-42.9) L 09/03/18 12:57 MCV 90 fl (79-97) 09/03/18 12:57 MCH 30 pg (28-32) 09/03/18 12:57 MCHC 34 % (30-34) 09/03/18 12:57 RDW 16.2 % (13.2-15.2) H 09/03/18 12:57 Plt Count 286 K/mm3 (140-440) 09/03/18 12:57 Lymph % (Auto) 32.4 % (13.4-35.0) 09/03/18 12:57 [place] % (Auto) 10.2 % (0.0-7.3) H 09/03/18 12:57 Eos % (Auto) 0.6 % (0.0-4.3) 09/03/18 12:57 Baso % (Auto) 0.3 % (0.0-1.8) 09/03/18 12:57 Lymph # 1.2 K/mm3 (1.2-5.4) 09/03/18 12:57 [place] # 0.4 K/mm3 (0.0-0.8) 09/03/18 12:57 Eos # 0.0 K/mm3 (0.0-0.4) 09/03/18 12:57 Baso # 0.0 K/mm3 (0.0-0.1) 09/03/18 12:57 Seg Neutrophils % 56.5 % (40.0-70.0) 09/03/18 12:57 Seg Neutrophils # 2.0 K/mm3 (1.8-7.7) 09/03/18 12:57 PT 13.2 Sec. (12.2-14.9) 09/03/18 13:11 INR 0.95 (0.87-1.13) 09/03/18 13:11 APTT 21.0 Sec. (24.2-36.6) L 09/03/18 13:11 Sodium 130 mmol/L (137-145) L 09/06/18 05:58 Potassium 3.4 mmol/L (3.6-5.0) L 09/08/18 13:04 Chloride 91.1 mmol/L (98-107) L 09/06/18 05:58 Carbon Dioxide 23 mmol/L (22-30) 09/06/18 05:58 Anion Gap 19 mmol/L 09/06/18 05:58 BUN 8 mg/dL (7-17) 09/06/18 05:58 Creatinine 1.1 mg/dL (0.7-1.2) 09/06/18 05:58 Estimated GFR 53 ml/min 09/06/18 05:58 BUN/Creatinine Ratio 7 % 09/06/18 05:58 Glucose 114 mg/dL (65-100) H 09/06/18 05:58 POC Glucose 83 (70-105) 09/04/18 02:29 Calcium 8.6 mg/dL (8.4-10.2) 09/06/18 05:58 Phosphorus 2.50 mg/dL (2.5-4.5) 09/06/18 05:58 Magnesium 1.70 mg/dL (1.7-2.3) 09/08/18 13:04 Total Bilirubin 0.60 mg/dL (0.1-1.2) 09/03/18 12:57 AST 68 units/L (5-40) H 09/03/18 12:57 ALT 22 units/L (7-56) 09/03/18 12:57 Alkaline Phosphatase 196 units/L (35-129) H 09/03/18 12:57 Ammonia 51.0 umol/L (25-60) 09/03/18 12:57 Total Creatine Kinase 369 units/L (30-135) H 09/03/18 12:57 CK-MB (CK-2) 2.3 ng/mL (0.0-4.0) 09/03/18 12:57 CK-MB (CK-2) Rel Index 0.6 (0-4) 09/03/18 12:57 Troponin T < 0.010 ng/mL (0.00-0.029) 09/03/18 12:57 Total Protein 6.8 g/dL (6.3-8.2) 09/03/18 12:57 Albumin 3.1 g/dL (3.9-5) L 09/03/18 12:57 Albumin/Globulin Ratio 0.8 % 09/03/18 12:57 TSH 8.310 mlU/mL (0.270-4.200) H 09/03/18 12:57 Free T4 0.98 ng/dL (0.76-1.46) 09/03/18 12:57 Urine Color [place] (Yellow) 09/03/18 12:55 Urine Turbidity Cloudy (Clear) 09/03/18 12:55 Urine pH 5.0 (5.0-7.0) 09/03/18 12:55 Ur Specific [place] 1.016 (1.003-1.030) 09/03/18 12:55 Urine Protein 100 mg/dl mg/dL (Negative) 09/03/18 12:55 Urine Glucose (UA) Neg mg/dL (Negative) 09/03/18 12:55 Urine Ketones Neg mg/dL (Negative) 09/03/18 12:55 Urine Blood Neg (Negative) 09/03/18 12:55 Urine Nitrite Neg (Negative) 09/03/18 12:55 Urine Bilirubin Neg (Negative) 09/03/18 12:55 Urine Urobilinogen 2.0 mg/dL (<2.0) 09/03/18 12:55 Ur Leukocyte Esterase Neg (Negative) 09/03/18 12:55 Urine WBC (Auto) 18.0 /HPF (0.0-6.0) H 09/03/18 12:55 Urine RBC (Auto) 4.0 /HPF (0.0-6.0) 09/03/18 12:55 U Epithel Cells (Auto) 3.0 /HPF (0-13.0) 09/03/18 12:55 Urine Bacteria (Auto) 3+ /HPF (Negative) 09/03/18 12:55 Hyaline Casts 9 /LPF 09/03/18 12:55 Urine Mucus Few /HPF 09/03/18 12:55 Levetiracetam 25.2 mcg/mL 09/03/18 16:18 Plasma/Serum Alcohol < 0.01 % (0-0.07) 09/03/18 12:57 Active Medications - Current Medications Current Medications: Generic Name Dose Route Start Last Admin Trade Name Freq PRN Reason Stop Dose Admin Acetaminophen 650 mg 09/03/18 15:18 09/07/18 16:36 Tylenol PO 650 mg Q4H PRN Administration Pain MILD(1-3)/Fever >100.5/SANTOS Albuterol 2.5 mg 09/03/18 15:18 09/08/18 00:09 Proventil IH 2.5 mg Q4HRT PRN Administration Shortness Of Breath Albuterol 2.5 mg 09/05/18 20:00 09/08/18 14:57 Proventil IH 2.5 mg TIDRT KARI Administration Amitriptyline HCl 50 mg 09/03/18 22:00 09/07/18 23:07 Elavil PO 50 mg QHS KARI Administration Lipase/Protease/Amylase 1 each 09/05/18 11:19 Pancrecarmen Benz 10,500 Unit FEEDTUBE PRN PRN For Clogged Feeding Tube Duloxetine HCl 30 mg 09/04/18 10:00 09/08/18 11:33 Cymbalta PO 30 mg DAILY KARI Administration Heparin Sodium (Porcine) 5,000 unit 09/03/18 22:00 09/08/18 11:37 Heparin SUB-Q 5,000 unit Q12HR KARI Administration Sodium Chloride 1,000 mls @ 42 mls/hr 09/03/18 16:00 09/08/18 00:55 Nacl 0.45% 1000 Ml IV 42 mls/hr DIRECT KARI Administration Ceftriaxone Sodium 1 gm in 50 mls @ 100 mls/hr 09/04/18 10:00 09/08/18 11:35 Rocephin/Ns 1 Gm/50 Ml IV 100 mls/hr Q24HR KARI Administration Protocol Levetiracetam 500 mg 09/03/18 22:00 09/08/18 11:36 Keppra PO 500 mg BID KARI Administration Levothyroxine Sodium 100 mcg 09/04/18 10:00 09/08/18 11:35 Synthroid PO 100 mcg QAM KARI Administration Loperamide HCl 2 mg 09/04/18 10:00 09/08/18 11:34 Imodium PO 2 mg DAILY KARI Administration Lorazepam 1 mg 09/03/18 16:19 09/08/18 11:33 Ativan IV 1 mg Q4H PRN Administration Agitation Morphine Sulfate 30 mg 09/03/18 22:00 09/08/18 11:34 Ms Contin Er PO 30 mg BID KARI Administration Morphine Sulfate 4 mg 09/03/18 16:20 09/08/18 00:49 Morphine IV 4 mg Q3H PRN Administration Pain , Severe (7-10) Ondansetron HCl 4 mg 09/03/18 15:18 09/05/18 22:35 Zofran IV 4 mg Q8H PRN Administration Nausea And Vomiting Prochlorperazine Maleate 10 mg 09/03/18 18:00 09/08/18 11:36 Compazine PO 10 mg Q6HR KARI Administration Simple Syrup 15 ml 09/05/18 11:19 Simple Syrup FEEDTUBE PRN PRN Hypoglycemia Simple Syrup 30 ml 09/05/18 11:19 Simple Syrup FEEDTUBE PRN PRN Hypoglycemia Sodium Bicarbonate 325 mg 09/05/18 11:19 Sodium Bicarbonate FEEDTUBE PRN PRN For Clogged Feeding Tube Sodium Chloride 10 ml 09/03/18 22:00 09/08/18 11:36 Sodium Chloride Flush Syringe 10 Ml IV 10 ml BID KARI Administration Sodium Chloride 10 ml 09/03/18 15:18 Sodium Chloride Flush Syringe 10 Ml IV PRN PRN LINE FLUSH Valsartan 80 mg 09/03/18 22:00 09/08/18 11:35 Diovan PO 80 mg QDAY KARI Administration Nutrition/Malnutrition Assess - Dietary Evaluation Nutrition/Malnutrition Findings: Nutrition Notes Start: 09/05/18 12:15 Freq: Status: Active Protocol: Document 09/08/18 12:07 LM (Rec: 09/08/18 12:17 LM [id number]) Co-Sign 09/08/18 12:07 LP Nutrition Notes Initial or Follow up Reassessment Current Diagnosis COPD,Hypertension,Stroke Other Pertinent Diagnosis Metastatic lung CA, Encephalopathy, UTI, SLE, Seizure D/O Current Diet Mechanical soft with ground meats Labs/Tests Na 130 Pertinent Medications Reviewed Height 5 ft 7 in Weight 72 kg [place] Body Weight (kg) 61.36 BMI 24.8 Subjective/Other Information Pt diet advanced to mechanical soft with ground meats. Breakfast tray was untouched at time of visit. Pt stated she did not eat yet because she felt tired. Discussed ONS. Percent of energy/protein needs met: 0%/0% Burn Absent Trauma Absent #1 Nutrition Diagnosis Inadequate oral intake As Evidenced by Signs and Symptoms pt advanced to mechanical soft Diagnosis Progress(for reassessment Improved documentation) Is patient on ventilator? No Is Patient Ambulatory and/or Out of Bed No REE-([place]-[facility]. Jeor-confined to bed) [phone] [facility]culation [facility] Additional Notes Protein needs: 72-86 g (1-1.2 g/kg) Fluid needs: 1 ml/kcal Nutrition Intervention Change Diet Order: Continue mechanical soft Add Supplement/Snack (indicate name/kcal Ensure strawberry daily /protein ) Provides kCal: 350 Provides Protein (gm) 20 Goal #1 Tolerate mechanical soft diet Goal #2 Meet at least 75% of energy and protein needs Anticipated Discharge Needs: Unable to determine at this time Follow-Up By: 09/10/18 Additional Comments F/U for intakes, diet tolerance
[2018-09-08] MEDS: ELAVIL PO SCH (21:18)
[2018-09-09] MEDS: COMPAZINE PO SCH ×4 (00:49→19:29)
[2018-09-09] MEDS: MORPHINE IV PRN ×3 (01:50→12:11)
[2018-09-09] MEDS: PROVENTIL IH PRN (05:44)
[2018-09-09] MEDS: PROVENTIL IH SCH ×3 (08:38→19:54)
[2018-09-09] MEDS: ROCEPHIN/NS 1 GM/50 ML 1 GM/50 ML BAG IV SCH (10:17)
[2018-09-09] MEDS: HEPARIN SUB-Q SCH ×2 (10:18→21:14)
[2018-09-09] MEDS: CYMBALTA PO SCH (10:18)
[2018-09-09] MEDS: MS CONTIN ER PO SCH ×2 (10:19→21:11)
[2018-09-09] MEDS: KEPPRA PO SCH ×2 (10:21→21:13)
[2018-09-09] MEDS: SYNTHROID PO SCH (10:22)
[2018-09-09] MEDS: SODIUM CHLORIDE FLUSH SYRINGE 10 ML IV SCH ×2 (12:15→21:14)
[2018-09-09] MEDS: IMODIUM PO SCH (12:15)
[2018-09-09] MEDS: DIOVAN PO SCH (12:15)
[2018-09-09] MEDS ORDERED: K-DUR PO ONE (12:30)
[2018-09-09] MEDS: ELAVIL PO SCH (21:12)
[2018-09-09] MEDS: TYLENOL PO PRN (21:13)
[2018-09-09] MEDS: ATIVAN IV PRN (21:23)
[2018-09-10] MEDS: COMPAZINE PO SCH ×2 (01:00→05:33)
[2018-09-10] MEDS: NACL 0.45% 1000 ML 1,000 ML IV SCH (03:17)
[2018-09-10] MEDS: MORPHINE IV PRN ×2 (05:32→13:29)
[2018-09-10] MEDS: PROVENTIL IH SCH ×2 (07:14→13:57)
--- NOTE | 2018-09-10 11:01 | Discharge Summary ---
Providers - Providers Date of Admission: 09/03/18 15:18 Date of discharge: 09/10/18 Attending physician: CARMEN HICKMAN 09/03/18 16:22 Consult to Case Management [CONS] Routine Services Needed at Discharge: Other Notified:: tejas Additional Physician Instructions: Discharge Planning. 09/04/18 10:58 Speech Therapy Evaluation and Treat [CONS] Routine Reason For Exam: DYSPHAGIA 09/05/18 11:19 Consult to Dietitian/Nutrition [CONS] Routine Physician Instructions: Assess nutrtn needs, initiate, modify, manage TF Reason For Exam: Reason for Consult: Write/Manage Tube Feeding Reason for Consult: Write/Manage Tube Feeding Primary care physician: CULINARY DIRECTOR Hospitalization Reason for admission: acute renal failure/altered level of consciousness Condition: Fair Pertinent studies: CT head without contrast and MRI brain Hospital course: 48 YO Female with HTN, Lung Cancer with Metastatic Disease to Liver and Brain, OA, COPD, Nicotine Dependence, ETOH Dependence, Homeless, SLE, Asthma, CVA, Seizure Disorder presents to ED for evaluation. Pt is lethargic/Stuporous and Nonverbal and unable to provide history. Pt history provided by daughter in law, who is at bedside during exam and interview. Pt was found to be unresponsive. Symptomatically managed Discharge Diagnosis: --Metabolic encephalopathy; multifactorial Metastatic lung cancer. Severe malnutrition Patient is more alert and awake today --Swallowing evaluation/speech therapy ; able to tolerate oral diet Advance diet as tolerated --Metastatic lung cancer; Oxygen IV fluids and pain control, supportive care Patient is from hospice, reconsult hospice --Acute kidney injury; secondary to ATN; resolved avoid nephrotoxins, gentle hydration --Hyponatremia; present on admission, mild improvement --Hypokalemia; managed with potassium chloride --Hypothyroidism; continue Synthroid --History of seizures; seizure precautions, antiepileptic medications --DVT prophylaxis; SCDs, heparin --CODE STATUS discussed in detail with the son, he reports that patient is DNR --DO NOT RESUSCITATE status Stable to be transferred to SNF today Disposition: DC/[place]-03 SNF W [facility] CERT Time spent for discharge: 35 min Core Measure Documentation - Palliative Care Palliative Care/ Comfort Measures: Not Applicable - Core Measures Any of the following diagnoses?: none Exam - Constitutional Vitals: Temp Pulse Resp BP Pulse Ox 98.3 F 111 H 20 106/68 94 09/10/18 05:48 09/10/18 05:48 09/10/18 05:48 09/10/18 05:48 09/10/18 05:48 General appearance: Present: no acute distress, well-nourished - EENT Eyes: Present: PERRL, EOM intact - Neck Neck: Present: supple, normal ROM - Respiratory Respiratory effort: normal Respiratory: bilateral: diminished, negative: rales, rhonchi, wheezing - Cardiovascular Rhythm: regular Heart Sounds: Present: S1 & S2 - Extremities Extremities: no ischemia, No edema - Abdominal General gastrointestinal: Present: soft, non-tender, non-distended, normal bowel sounds - Integumentary Integumentary: Present: clear, warm - Musculoskeletal Musculoskeletal: strength equal bilaterally, generalized weakness - Psychiatric Psychiatric: appropriate mood/affect, cooperative - Neurologic Neurologic: CNII-XII intact, moves all extremities Plan Activity: advance as tolerated, fall precautions Diet: other (mechanical soft diet) Special Instructions: physical therapy Additional Instructions: Fall precautions. Aspiration precautions Follow up with: PRIMARY CARE, [Primary Care Provider] - 3-5 Days Prescriptions: Amitriptyline [Elavil] 50 mg PO QHS #30 tablet levETIRAcetam [Keppra] 500 mg PO BID #60 tablet Morphine Sulfate [Morphine Sulfate ER] 30 mg PO BID #10 tablet.er Levothyroxine [Synthroid] 100 mcg PO QAM #30 tablet
[2018-09-10] MEDS: KEPPRA PO SCH (11:36)
[2018-09-10] MEDS: CYMBALTA PO SCH (11:36)
[2018-09-10] MEDS: MS CONTIN ER PO SCH (11:37)
[2018-09-10] MEDS: SYNTHROID PO SCH (11:37)
[2018-09-10] MEDS: IMODIUM PO SCH (11:38)
[2018-09-10] MEDS: DIOVAN PO SCH (11:38)
[2018-09-10] MEDS: HEPARIN SUB-Q SCH (11:38)
[2018-09-10] MEDS: SODIUM CHLORIDE FLUSH SYRINGE 10 ML IV SCH (11:39)
[2018-09-10 11:56] VITALS: BP 115/67
[2018-09-10] MEDS: PROVENTIL IH PRN (12:23)
== END 2018-09-10 14:55 | DRG 70 ==
LOC: ED 12:25 → 3A 15:18
PROVIDERS: ADMIT Internal Medicine; ATTEND Internal Medicine
DX: G93.41 Metabolic encephalopathy (principal); N17.0 Acute kidney failure with tubular necrosis; E43 Unspecified severe protein-calorie malnutrition; C34.90 Malignant neoplasm of unspecified part of unspecified bronchus or lung; N39.0 Urinary tract infection, site not specified; E87.1 Hypo-osmolality and hyponatremia; R49.22 Hyponasality; E87.6 Hypokalemia; Z66 Do not resuscitate; I10 Essential (primary) hypertension; C78.7 Secondary malignant neoplasm of liver and intrahepatic bile duct; C79.31 Secondary malignant neoplasm of brain; M19.90 Unspecified osteoarthritis, unspecified site; J44.9 Chronic obstructive pulmonary disease, unspecified; F17.200 Nicotine dependence, unspecified, uncomplicated; G40.909 Epilepsy, unspecified, not intractable, without status epilepticus; E89.0 Postprocedural hypothyroidism; Z82.49 Family history of ischemic heart disease and other diseases of the circulatory system; Z86.73 Personal history of transient ischemic attack (TIA), and cerebral infarction without residual deficits; Z68.24 Body mass index [BMI] 24.0-24.9, adult; Z86.718 Personal history of other venous thrombosis and embolism; Z90.49 Acquired absence of other specified parts of digestive tract; Z88.5 Allergy status to narcotic agent; Z91.010 Allergy to peanuts; Z59.0 Homelessness
CPT/HCPCS: 36415; 70450; 70551; 80048; 80053; 80177; 80320; 81001; 82140; 82550; 82553; 82962; 83735; 84100; 84132; 84439; 84443; 84484; 85025; 85610; 85730; 87040; 87116; 93005; 93010; 94640; 94760; 96360; 99406; G0378; G0480; J0696; J1644; J1953; J2060; J2270; J2405; J3475; J7030; Q0164